=== PATIENT | female | born 1955 | race Caucasian/White ===

== ENCOUNTER 2021-06-13 13:42 | Inpatient (IN) ==
[2021-06-13] MEDS ORDERED: cefTRIAXone 1 GM VIAL IV ONE (14:13)
--- NOTE | 2021-06-13 14:18 | Emergency Department Note ---
Skin/Abscess/FB HPI General Chief complaint: Skin/Abscess/Rash Stated complaint: infected wound Time Seen by Provider: 06/13/21 14:00 Source: patient Mode of arrival: ambulatory Limitations: no limitations History of Present Illness HPI Narrative: Patient is a 66-year-old lady who arrives emergency department by private vehicle complaining of a right foot infection. The patient says yesterday she started notice a blister over the plantar surface of the right foot. She also is beginning to develop fever and chills. She has had generalized malaise and had an episode of diarrhea yesterday. Today when she woke up, she noticed that the blister was much larger and she had some purulent drainage from her foot as well. 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 Jurado who debrided the wound and recommended she come to the emergency department for IV antibiotics. Patient continues to have subjective fever and chills but otherwise denies any focal symptoms. Nothing seems to make the symptoms any better or worse. She has had similar problems in the past due to foot infections. Related Data Home Medications Medication Instructions Recorded Confirmed aspirin [Arline Chewable Aspirin] 81 mg PO DAILY 09/15/17 09/15/17 furosemide 40 mg PO DAILY 09/15/17 06/13/21 losartan [Cozaar] 25 mg PO DAILY 09/15/17 06/13/21 metformin [Fortamet] See Rx Instructions .ROUTE .COMPLEX 09/15/17 06/13/21 simvastatin 40 mg PO HS 09/15/17 09/15/17 B [place] PO 11/21/19 DHEA 5 mg PO 11/21/19 Gamma E 5mg PO 11/21/19 [place] ProDHA 1000 PO 11/21/19 [place] ProEPA 2000MG PO 11/21/19 Q-Evail 200 mg PO 11/21/19 11/21/19 Quercitin and Nettle 600mg PO 11/21/19 Tumeric 800mg PO 11/21/19 Zinc Plus 15mg PO 11/21/19 apple cider vinegar 300 mg tablet mg .ROUTE 11/21/19 11/21/19 ascorbate calcium (vitamin C) 500 mg .ROUTE 11/21/19 11/21/19 mg tablet cholecalciferol (vitamin D3) 125 mcg .ROUTE 11/21/19 11/21/19 mcg (5,000 unit) capsule cinnamon bark 500 mg capsule mg .ROUTE 11/21/19 11/21/19 cyclosporine 0.05 % eye drops in a % .ROUTE 11/21/19 11/21/19 dropperette fluconazole 100 mg tablet mg .ROUTE 11/21/19 11/21/19 fluticasone propionate 50 mcg .ROUTE 11/21/19 11/21/19 mcg/actuation nasal spray,suspension hydrochlorothiazide 25 mg tablet See Rx Instructions .ROUTE .COMPLEX 11/21/19 06/13/21 ibuprofen 100 mg tablet mg .ROUTE 11/21/19 11/21/19 liquid B12 500mg PO 11/21/19 magnesium gluconate 12.5 mg mg .ROUTE 11/21/19 magnesium (250 mg) tablet montelukast 10 mg tablet See Rx Instructions .ROUTE 11/21/19 11/21/19 .COMPLEX tab pregabalin 75 mg capsule mg .ROUTE .TID cap 11/21/19 11/21/19 pseudoephedrine-guaifenesin ER 120 tab .ROUTE 11/21/19 11/21/19 mg-1,200 mg tab,extend release 12hr acyclovir 1 applic TOPICAL 5XD PRN 06/13/21 06/13/21 clotrimazole-betamethasone 15 TOPICAL BID 06/13/21 hydroxychloroquine 200 mg PO WEEKLY 06/13/21 06/13/21 insulin glargine [Basaglar KwikPen See Rx Instructions .ROUTE .COMPLEX 06/13/21 06/13/21 U-100 Insulin] potassium 20 mg PO 06/13/21 potassium chloride [Klor-Con M20] 20 meq PO DAILY 06/13/21 06/13/21 Allergies Allergy/AdvReac Type Severity Reaction Status Date / Time codeine Allergy Intermediate Confusion Verified 09/15/17 07:57 ketoconazole Allergy Mild Rash Unverified 06/13/21 15:35 acetaminophen [From Percocet] Allergy Unknown Unknown Unverified 11/21/19 11:11 azithromycin Allergy Unknown Unknown Unverified 11/21/19 11:11 bupropion [From Wellbutrin] Allergy Unknown Unknown Unverified 11/21/19 11:11 hydrocodone [From Lortab] Allergy Unknown unknown Unverified 11/21/19 11:11 oxycodone [From Percocet] Allergy Unknown Unknown Unverified 11/21/19 11:11 pioglitazone [From Actos] Allergy Unknown Unknown Unverified 11/21/19 11:11 Synthetic Insulin Allergy Unknown Unknown Uncoded 11/21/19 11:05 Review of Systems ROS ROS Narrative: Narrative: All systems ED: reviewed and negative except as stated. Constitutional: Reports fever and chills Cardiovascular: Denies chest pain Gastrointestinal: Denies abdominal pain, nausea and vomiting PFSH Narrative Patient History Narrative: Narrative: Medical/Surgical/Family History All Active Problems (Updated 06/13/21 @ 17:09 by Wali Mclain DO) Cellulitis of foot, right (Acute) Diabetic ulcer of right foot (Acute) Asthma (Chronic) History of surgery (Chronic) Pericardial effusion (noninflammatory) (Chronic) Heart disease, unspecified (Chronic) Type 2 diabetes mellitus with diabetic neuropathy, unspecified (Chronic) Stenosis of larynx (Chronic) Morbid obesity (Chronic) Unspecified asthma, uncomplicated (Chronic) Hypertension (Chronic) Radiculopathy, lumbosacral region (Chronic) Low back pain (Chronic) Chronic pain (Chronic) Medical History Asthma Chronic pain Heart disease, unspecified Hypertension Low back pain Morbid obesity Pericardial effusion (noninflammatory) Radiculopathy, lumbosacral region Stenosis of larynx S/P Dilation Type 2 diabetes mellitus with diabetic neuropathy, unspecified Unspecified asthma, uncomplicated Surgical History History of surgery LESI #2 Lt. L5-S1 w/o sed 11/02/2019 LESI #1 Lt. L5-S1 w/o sed 10/12/2019 Family History Other No pertinent family history Social History Smoking Status: Never smoker Alcohol Intake Frequency: does not drink Substance Use: does not use Exam Narrative Narrative: I reviewed the vital signs. Gen -patient is awake and alert and in no acute distress. HEENT -head is atraumatic. There is no conjunctival pallor or scleral icterus. CV -S1-S2 regular rate and rhythm. Resp -breathing is nonlabored. Lungs are clear to auscultation bilaterally. There is no cyanosis. Derm -skin is warm and dry. MSK -there is a patch of desquamation over the posterior plantar surface of the right foot consistent with recent debridement. There is underlying granulation tissue present. There is surrounding erythema tracking up the medial surface of the foot that blanches with palpation. There is palpable warmth to the soft tissues of the calf without any visible erythema. There is no palpable fluctu ance or crepitus to the soft tissues. Dorsalis pedis and posterior tibial pulse are palpable. The patient's foot is insensate as she states is her long-term baseline Psych -patient has appropriate affect. Neuro -patient answers questions appropriately with fluent speech. Patient moves all present extremities equally. General Limitations: no limitations Course Vital Signs Vital signs: Vital Signs Temperature 97.8 F 06/13/21 13:44 Pulse Rate 83 06/13/21 13:44 Respiratory Rate 16 06/13/21 13:44 Blood Pressure 163/68 06/13/21 13:44 Pulse Oximetry (%) 96 06/13/21 13:44 Temperature 97.8 F 06/13/21 13:44 Pulse Rate 72 06/13/21 17:01 Respiratory Rate 16 06/13/21 13:44 Blood Pressure 132/47 06/13/21 17:01 Pulse Oximetry (%) 96 06/13/21 17:01 [facility] MDM Narrative Medical decision making narrative: Patient presents with cellulitis surrounding a recently diabetic foot ulcer. Labs remarkable for minimal leukocytosis. Given the surrounding cellulitis I recommended the patient be admitted for IV antibiotics and she is agreeable. I discussed the patient's history examination and diagnostic findings with Dr. Pickens, who agrees with the plan of care and accepts admission. Lab Data Lab results reviewed: Yes I reviewed the patient's lab results. Result diagrams: 06/13/21 13:23 Labs: Lab Results 06/13/21 06/13/21 06/13/21 Range/Units 13:23 14:23 14:33 WBC 12.1 H (4.5-11.0) K/mcL RBC 4.14 (3.59-5.38) M/mcL Hgb 13.0 (11.2-15.7) g/dL Hct 39.0 (34.1-44.9) % POC Hct 38 (36-48) % MCV 94.2 (80.0-100.0) fL MCH 31.4 (26.0-34.0) pg MCHC 33.3 (31.0-36.0) g/dL RDW 12.9 (11.5-14.5) % Plt Count 175 (140-440) K/mcL MPV 12.3 H (7.4-10.4) fL Neut % (Auto) 80.0 H (38.0-78.0) % Lymph % (Auto) 11.4 L (15.5-49.0) % [place] % (Auto) 7.7 (1.0-12.0) % Eos % (Auto) 0.6 (0.0-7.0) % Baso % (Auto) 0.3 (0.0-2.0) % Lymph # (Auto) 1.39 L (1.50-4.80) K/mcL [place] # (Auto) 0.94 H (0.10-0.90) K/mcL Eos # (Auto) 0.07 (0.00-0.70) K/mcL Baso # (Auto) 0.04 (0.00-0.30) K/mcL Absolute Neutrophils 9.70 H (1.80-8.00) K/mcL VBG Lactic Acid 1.1 (0.5-2.0) mmol/L POC Sodium 134 (133-145) mEq/L POC Potassium 4.1 (3.3-5.1) mEql/L POC Chloride 99 (96-108) mEq/L POC Total CO2 23 (22-30) mmol/L POC BUN 22 H (6-20) mg/dL POC Creatinine 0.6 (0.6-1.2) mg/dL POC Glucose 376 H (70-105) mg/dL POC WB Ioniz Calcium 1.06 L (1.16-1.32) mmEq/L ED POC Tests ED POC Tests: SHEILA - SARS Antigen Negative Discharge Plan Patient/Caregiver Discharge Instructions Pt seen by TIMBER RIDER/PA only: No Clinical Impression: Diabetic ulcer of right foot, Cellulitis of foot, right Patient Disposition: Xfer As Inpt ([facility]) Follow up with: Bipin Yung [Primary Care Provider] - Prescriptions: No Action losartan [Cozaar] 50 MG tablet 25 mg PO DAILY RF: 0 furosemide 40 MG tablet 40 mg PO DAILY RF: 0 simvastatin 40 MG tablet 40 mg PO HS RF: 0 aspirin [Arline Chewable Aspirin] 81 MG tablet,chewable 81 mg PO DAILY RF: 0 metformin [Fortamet] 1,000 MG tablet extended release 24hr See Rx Instructions .ROUTE .COMPLEX RF: 0 potassium chloride [Klor-Con M20] 20 mEq tablet,ER particles/crystals 20 meq PO DAILY RF: 0 clotrimazole-betamethasone 1-0.05 % Cream 15 TOPICAL BID RF: 0 hydroxychloroquine 200 mg Tablet 200 mg PO WEEKLY RF: 0 potassium 20 mg Tablet,Chewable 20 mg PO RF: 0 acyclovir 5 % Cream 1 applic TOPICAL 5XD PRN (Reason: Shingles) RF: 0 Basaglar KwikPen U-100 Insulin 100 unit/mL (3 mL) insulin pen See Rx Instructions .ROUTE .COMPLEX RF: 0 pregabalin [Lyrica] 75 mg capsule .Route .TID RF: 0 hydrochlorothiazide 25 mg tablet See Rx Instructions .ROUTE .COMPLEX RF: 0 montelukast [Singulair] 10 mg tablet See Rx Instructions .ROUTE .COMPLEX RF: 0 fluticasone propionate [Flonase Allergy Relief] 50 mcg/actuation spray,suspension .Route RF: 0 [place] 0.05 % dropperette .Route RF: 0 ibuprofen 100 mg tablet .Route RF: 0 magnesium gluconate 12.5 mg magnesium (250 mg) tablet 12.5 mg magne- sium (250 mg) tablet .Route RF: 0 pseudoephedrine-guaifenesin [Mucinex D Maximum Strength] 120-1,200 mg tablet extended release 12 hr .Route RF: 0 ascorbate calcium (vitamin C) 500 mg tablet .Route RF: 0 cinnamon bark [Cinnamon] 500 mg capsule .Route RF: 0 apple cider vinegar 300 mg tablet .Route RF: 0 Q-Evail 200 mg tablet PO RF: 0 Quercitin and Nettle 600mg tablet PO RF: 0 B [place] PO RF: 0 Tumeric 800mg PO RF: 0 Zinc Plus 15mg PO RF: 0 [place] ProDHA 1000 PO RF: 0 Gamma E 5mg PO RF: 0 cholecalciferol (vitamin D3) 125 mcg (5,000 unit) capsule .Route RF: 0 fluconazole 100 mg tablet .Route RF: 0 liquid B12 500mg PO RF: 0 [place] ProEPA 2000MG PO RF: 0 DHEA 5 mg PO RF: 0
[2021-06-13 14:44] LABS: POC Blood Urea Nitrogen 22 mg/dL (6-20); POC CO2 23 mmol/L (22-30); POC Calcium, Ionized 1.06 mmEq/L (1.16-1.32); POC Chloride 99 mEq/L (96-108); POC Creatinine 0.6 mg/dL (0.6-1.2); POC Glucose, Random 376 mg/dL (70-105); POC Hematocrit 38 % (36-48); POC Potassium 4.1 mEql/L (3.3-5.1); POC Sodium 134 mEq/L (133-145)
[2021-06-13 15:14] LABS: Basophils # (Auto) 0.04 K/mcL (0.00-0.30); Basophils % (Auto) 0.3 % (0.0-2.0); Eosinophils # (Auto) 0.07 K/mcL (0.00-0.70); Eosinophils % (Auto) 0.6 % (0.0-7.0); Lymphocytes # (Auto) 1.39 K/mcL (1.50-4.80); Lymphocytes % (Auto) 11.4 % (15.5-49.0); Mean Cell Volume 94.2 fL (80.0-100.0); Mean Corpuscular HGB Conc 33.3 g/dL (31.0-36.0); Mean Platelet Volume 12.3 fL (7.4-10.4); Monocytes # (Auto) 0.94 K/mcL (0.10-0.90); Monocytes % (Auto) 7.7 % (1.0-12.0); Platelet Count 175 K/mcL (140-440); RBC 4.14 M/mcL (3.59-5.38); Red Cell Distribution Width 12.9 % (11.5-14.5); WBC 12.1 K/mcL (4.5-11.0)
[2021-06-13] MEDS ORDERED: ACYCLOVIR 5% TOPICAL PRN (16:27)
[2021-06-13] MEDS ORDERED: HYDROXYCHLOROQUINE 200 MG TABLET PO SCH (16:30)
[2021-06-13] MEDS ORDERED: IPRATROPIUM/ALBUTEROL 3 ML AMPUL.NEB NEB PRN ×2 (16:48→18:11)
--- NOTE | 2021-06-13 16:48 | Internal Med History&Physical ---
HPI History of Present Illness Patient information: Note initiated : 06/13/21 at 4:45 pm Service Date, if different from initiated Date: [] Patient: Grace Sands 66 y/o F admitted on for infected wound. Chief Complaint: [right diabetic foot] History of present illness: Ms. Sands is a 66 year old F history of morbid obesity, type 2 diabetes mellitus, asthma, essential hypertension's, presenting with 2-day history of right foot ulcer at her also. Prior similar episode was about a month ago on her right fifth toe. She does not remember any trauma or injury to the site. 2 days ago she had a low-grade fever temperature 98 according to patient's. She also had diarrhea 3 days ago. Yesterday she woke up discovering a blister measuring 5 x 7 to 10 cm in the sole of her right foot. She denies any pain because she cannot feel any pain secondary to diabetic neuropathy. She currently does not have any subjective or objective fever or any shaking chills. No change in her appetite. She presented to her PCP clinics earlier today for a wound debridement but she was sent by the PCP to our ED for further evaluations. Vital signs are within normal limits upon ER presentations. Labs significant for leukocytosis with WBC 12.1. Serum glucose level 376. No imaging available. Constitutional Constitutional: Absent chills, excessive sweating, fatigue, fever(s) and weakness EENT Eyes: Absent blurry vision, change in vision, loss of vision and other visual disturbances Ears: Absent decreased hearing and tinnitus Nose, mouth and throat: Absent abnormal hearing, dry mouth, headache(s), nasal congestion and sore throat Cardiovascular Cardiovascular: Absent chest pain, chest pain at rest, edema, irregular heart rhythm and palpatations Respiratory Respiratory: Absent cough, dyspnea and wheezing Gastrointestinal Gastrointestinal: Absent abdominal pain, constipation, diarrhea, nausea and vomiting Musculoskeletal Musculoskeletal: Absent back pain, deformity, limited range of motion, muscle cramps, muscle weakness and numbness Additional comments: 5X10cm skin ulcer s/p debridement located on her right sole Integumentary Integumentary: Present lesions, skin ulcer and wounds; Absent rash Neurological Neurological: Absent focal weakness, headache(s) and numbness Psychiatric Psychiatric: Absent anxiety, depression and hallucinations PFSH PFSH All Active Problems (Updated 06/13/21 @ 16:53 by Marc Pickens MD) Diabetic ulcer of right foot (Acute) Asthma (Chronic) History of surgery (Chronic) Pericardial effusion (noninflammatory) (Chronic) Heart disease, unspecified (Chronic) Type 2 diabetes mellitus with diabetic neuropathy, unspecified (Chronic) Stenosis of larynx (Chronic) Morbid obesity (Chronic) Unspecified asthma, uncomplicated (Chronic) Hypertension (Chronic) Radiculopathy, lumbosacral region (Chronic) Low back pain (Chronic) Chronic pain (Chronic) Medical History Asthma Chronic pain Heart disease, unspecified Hypertension Low back pain Morbid obesity Pericardial effusion (noninflammatory) Radiculopathy, lumbosacral region Stenosis of larynx S/P Dilation Type 2 diabetes mellitus with diabetic neuropathy, unspecified Unspecified asthma, uncomplicated Surgical History History of surgery LESI #2 Lt. L5-S1 w/o sed 11/02/2019 LESI #1 Lt. L5-S1 w/o sed 10/12/2019 Family History Other No pertinent family history Social History alcohol intake frequency: does not drink substance use type: does not use MEDS/ALLERGIES Home Medications and Allergies Home Medications Medication Instructions Recorded Confirmed Type aspirin [Arline Chewable Aspirin] 81 mg PO DAILY 09/15/17 09/15/17 History furosemide 40 mg PO DAILY 09/15/17 06/13/21 History losartan [Cozaar] 25 mg PO DAILY 09/15/17 06/13/21 History metformin [Fortamet] See Rx Instructions .ROUTE .COMPLEX 09/15/17 06/13/21 History simvastatin 40 mg PO HS 09/15/17 09/15/17 History B [place] PO 11/21/19 History DHEA 5 mg PO 11/21/19 History Gamma E 5mg PO 11/21/19 History [place] ProDHA 1000 PO 11/21/19 History [place] ProEPA 2000MG PO 11/21/19 History Q-Evail 200 mg PO 11/21/19 11/21/19 History Quercitin and Nettle 600mg PO 11/21/19 History Tumeric 800mg PO 11/21/19 History Zinc Plus 15mg PO 11/21/19 History apple cider vinegar 300 mg tablet mg .ROUTE 11/21/19 11/21/19 History ascorbate calcium (vitamin C) 500 mg .ROUTE 11/21/19 11/21/19 History mg tablet cholecalciferol (vitamin D3) 125 mcg .ROUTE 11/21/19 11/21/19 History mcg (5,000 unit) capsule cinnamon bark 500 mg capsule mg .ROUTE 11/21/19 11/21/19 History cyclosporine 0.05 % eye drops in a % .ROUTE 11/21/19 11/21/19 History dropperette fluconazole 100 mg tablet mg .ROUTE 11/21/19 11/21/19 History fluticasone propionate 50 mcg .ROUTE 11/21/19 11/21/19 History mcg/actuation nasal spray,suspension hydrochlorothiazide 25 mg tablet See Rx Instructions .ROUTE .COMPLEX 11/21/19 06/13/21 History ibuprofen 100 mg tablet mg .ROUTE 11/21/19 11/21/19 History liquid B12 500mg PO 11/21/19 History magnesium gluconate 12.5 mg mg .ROUTE 11/21/19 History magnesium (250 mg) tablet montelukast 10 mg tablet See Rx Instructions .ROUTE 11/21/19 11/21/19 History .COMPLEX tab pregabalin 75 mg capsule mg .ROUTE .TID cap 11/21/19 11/21/19 History pseudoephedrine-guaifenesin ER 120 tab .ROUTE 11/21/19 11/21/19 History mg-1,200 mg tab,extend release 12hr acyclovir 1 applic TOPICAL 5XD PRN 06/13/21 06/13/21 History clotrimazole-betamethasone 15 TOPICAL BID 06/13/21 History hydroxychloroquine 200 mg PO WEEKLY 06/13/21 06/13/21 History insulin glargine [Basaglar KwikPen See Rx Instructions .ROUTE .COMPLEX 06/13/21 06/13/21 History U-100 Insulin] potassium 20 mg PO 06/13/21 History potassium chloride [Klor-Con M20] 20 meq PO DAILY 06/13/21 06/13/21 History Allergies Allergy/AdvReac Type Severity Reaction Status Date / Time codeine Allergy Intermediate Confusion Verified 09/15/17 07:57 ketoconazole Allergy Mild Rash Unverified 06/13/21 15:35 acetaminophen [From Percocet] Allergy Unknown Unknown Unverified 11/21/19 11:11 azithromycin Allergy Unknown Unknown Unverified 11/21/19 11:11 bupropion [From Wellbutrin] Allergy Unknown Unknown Unverified 11/21/19 11:11 hydrocodone [From Lortab] Allergy Unknown unknown Unverified 11/21/19 11:11 oxycodone [From Percocet] Allergy Unknown Unknown Unverified 11/21/19 11:11 pioglitazone [From Actos] Allergy Unknown Unknown Unverified 11/21/19 11:11 Synthetic Insulin Allergy Unknown Unknown Uncoded 11/21/19 11:05 EXAM Constitutional Vitals: Temp Pulse Resp BP Pulse Ox 36.6 C 74 16 133/44 94 06/13/21 13:44 06/13/21 16:31 06/13/21 13:44 06/13/21 16:31 06/13/21 16:31 General appearance: cooperative and no acute distress Head Head exam: Present atraumatic and normocephalic Eye Eye exam: Present EOMI and PERRL ENT ENT exam: Present mucous membranes moist, normal exam and normal external ear exam Neck Neck exam: Present normal inspection; Absent lymphadenopathy, tenderness and thyromegaly Respiratory Respiratory exam: Absent accessory muscle use, respiratory distress and wheezes Cardiovascular Cardiovascular exam: Present normal rate and rhythm; Absent JVD GI/Abdominal GI/Abdominal exam: Present normal bowel sounds and soft; Absent organomegaly and tenderness Extremities Exam Extremities exam: Present full ROM and normal capillary refill; Absent normal inspection and tenderness Additional comments: 5X10cm ulcer s/p debridement located on her right sole with surrounding erythema, warmth to touch Neurological Exam Neurological exam: Present alert, CN II-XII intact and oriented X3; Absent motor sensory deficit Psychiatric Psychiatric exam: Present normal affect and normal mood; Absent anxious and depressed Skin Skin exam: Present dry, erythema and warm; Absent intact Additional comments: 5X10cm ulcer s/p debridement located on her right sole with surrounding erythema, warmth to touch DATA Data Completed and Pending Labs: Labs from last 24 hours 06/13/21 06/13/21 06/13/21 14:33 14:23 13:23 WBC 12.1 H RBC 4.14 Hgb 13.0 Hct 39.0 POC Hct 38 MCV 94.2 MCH 31.4 MCHC 33.3 RDW 12.9 Plt Count 175 MPV 12.3 H Neut % (Auto) 80.0 H Lymph % (Auto) 11.4 L [place] % (Auto) 7.7 Eos % (Auto) 0.6 Baso % (Auto) 0.3 Lymph # (Auto) 1.39 L [place] # (Auto) 0.94 H Eos # (Auto) 0.07 Baso # (Auto) 0.04 Absolute Neutrophils 9.70 H VBG Lactic Acid 1.1 POC Sodium 134 POC Potassium 4.1 POC Chloride 99 POC Total CO2 23 POC BUN 22 H POC Creatinine 0.6 POC Glucose 376 H POC WB Ioniz Calcium 1.06 L A/P Assessment and plan (1) Type 2 diabetes mellitus with diabetic neuropathy, unspecified: Status: Chronic (2) Diabetic ulcer of right foot: Status: Acute (3) Morbid obesity: Status: Chronic (4) Hypertension: Status: Chronic (5) Asthma: Status: Chronic Narrative A/P Narrative: Assessment and Plans: 1. Diabetic foot ulcer of the right foot, with associated diabetic neuropathy: Admit to inpatient MedSurg Consult termite treater Dr. Garza, recommendation appreciated Blood culture Wound culture Serial lactic acid Procalcitonin level CBC with auto differential in the morning to trend WBC Right foot x-ray Vancomycin Zosyn Oxycodone as needed moderate pain Morphine IV as needed severe pain Tylenol as needed fever or mild pain Physical therapy Occupational Therapy Hemoglobin A1c Hold oral hypoglycemics Increased dosage of insulin Lantus to 10 units subcutaneous twice daily for better glycemic coverage High-dose correctional scale insulin AC at bedtime Accu-Chek AC at bedtime Hypoglycemia protocol Diabetic diet #2 essential hypertension: Currently normotensive Continue home regiment of oral antihypertensive 3. History of asthma: Continue Fluticasone DuoNeb nebulizer as needed wheezing #4 morbid obesity: Counseled patient on importance he of lifestyle modification including regular exercise and balanced diet in order to lose weight GI prophylaxis: Not currently indicated DVT products: Heparin CODE STATUS: Full code Prognosis: Stable Disposition: Inpatient MedSurg Time Spent With Patient Time: Total time spent is greater than 50% in coordination of care (as documented) at patient's floor/unit and/or counseling patient: Total time spent with greater than 50% in coordination of care (as documented) at patient's floor/unit and/or counseling patient:: Greater than 35 minutes
[2021-06-13] MEDS ORDERED: DEXTROSE 50% 50 ML VIAL IV PRN (18:11)
[2021-06-13] MEDS ORDERED: DEXTROSE 31 GM ORAL.SUSP PO PRN (18:11)
[2021-06-13] MEDS ORDERED: ACETAMINOPHEN 325 MG TABLET PO PRN (18:11)
[2021-06-13] MEDS ORDERED: ZOLPIDEM 5 MG TABLET PO PRN (18:11)
[2021-06-13] MEDS ORDERED: oxyCODONE HCL 5 MG TABLET PO PRN (18:11)
[2021-06-13] MEDS ORDERED: ONDANSETRON 4 MG/2 ML VIAL IV PRN (18:11)
[2021-06-13] MEDS ORDERED: morphine 4 MG/ML VIAL IV PRN (18:11)
[2021-06-13] MEDS ORDERED: VANCOMYCIN PER PHARMACY IV SCH (18:11)
--- NOTE | 2021-06-13 18:35 | XRay Report ---
HISTORY: Diabetic wound in the right foot with infection FINDINGS: There is a skin dressing applied to the plantar surface of the foot under the heel. There is no gas or other foreign body in this region. The bones are normally mineralized without evidence of osteomyelitis. There is mild osteoarthritis. Medium-size spur is present on the plantar surface of the calcaneus with a smaller spur posteriorly. There is also mild arthritis along the dorsal side of the cuneiforms and the first metatarsal phalangeal joint. Few vascular calcifications are present in the foot. IMPRESSION: No evidence of osteomyelitis. Mild arthritis Interpreted and Authenticated by: Chaz Rojas 06/13/21
[2021-06-13] MEDS: PIPERACILLIN SODIUM/TAZOBACTAM 3.375 GM in DEXTROSE 5% IN WATER 50 ML IV SCH ×2 (20:09→23:12)
[2021-06-13] MEDS ORDERED: ACYCLOVIR TP PRN (20:13)
[2021-06-13] MEDS ORDERED: IBUPROFEN 200 MG TABLET PO PRN (20:43)
[2021-06-13] MEDS: INSULIN LISPRO 1 UNIT/0.01 ML UNIT SQ SCH ×2 (20:53→23:10)
[2021-06-13] MEDS: DOCUSATE SODIUM 100 MG CAPSULE PO SCH (20:54)
[2021-06-13] MEDS: HEPARIN 5,000 UNIT/ML VIAL SQ SCH (20:54)
[2021-06-13] MEDS: FLUTICASONE PROPIONATE SPRAY.NAS NS SCH (20:54)
[2021-06-13] MEDS: INSULIN GLARGINE, HUMAN 1 UNIT/0.01 ML SQ SCH (20:54)
[2021-06-13] MEDS: SIMVASTATIN 40 MG TABLET PO SCH (20:56)
[2021-06-13] MEDS: SENNOSIDES 1 TABLET PO SCH (20:56)
[2021-06-13] MEDS: MONTELUKAST 10 MG TABLET PO SCH (20:56)
[2021-06-13] MEDS: 0.9 % SODIUM CHLORIDE 10 ML SYRINGE IV SCH (20:56)
[2021-06-13] MEDS ORDERED: guaiFENesin 600 MG TAB.SR.12H PO SCH (21:00)
[2021-06-13] MEDS ORDERED: PSEUDOEPHEDRINE 30 MG TABLET PO SCH (21:00)
[2021-06-13] MEDS ORDERED: guaiFENesin 600 MG TAB.SR.12H PO PRN (21:00)
[2021-06-13] MEDS ORDERED: NON FORMULARY MEDICATION 1 DOSE MISCELL (Insulin Glargine [Basaglar Kwikpen U-100 Insulin] SQ SCH (21:00)
[2021-06-13] MEDS ORDERED: PSEUDOEPHEDRINE 30 MG TABLET PO PRN (21:00)
[2021-06-13] MEDS: PREGABALIN 75 MG CAPSULE PO SCH (21:03)
[2021-06-13] MEDS: VANCOMYCIN 1,500 MG in 0.9 % SODIUM CHLORIDE 500 ML IV SCH (21:53)
[2021-06-13 23:41] LABS: Hemoglobin A1C 8.9 % Hgb (4.0-6.0)
[2021-06-14] MEDS: PIPERACILLIN SODIUM/TAZOBACTAM 3.375 GM in DEXTROSE 5% IN WATER 50 ML IV SCH ×4 (03:19→18:19)
[2021-06-14] MEDS: 0.9 % SODIUM CHLORIDE 10 ML SYRINGE IV SCH ×3 (04:43→20:13)
[2021-06-14 07:05] LABS: Basophils # (Auto) 0.04 K/mcL (0.00-0.30); Basophils % (Auto) 0.4 % (0.0-2.0); Eosinophils # (Auto) 0.16 K/mcL (0.00-0.70); Eosinophils % (Auto) 1.5 % (0.0-7.0); Hematocrit 34.8 % (34.1-44.9); Hemoglobin 11.2 g/dL (11.2-15.7); Lymphocytes # (Auto) 2.32 K/mcL (1.50-4.80); Lymphocytes % (Auto) 21.1 % (15.5-49.0); Mean Cell Volume 95.9 fL (80.0-100.0); Mean Corpuscular HGB Conc 32.2 g/dL (31.0-36.0); Mean Platelet Volume 11.9 fL (7.4-10.4); Monocytes # (Auto) 1.19 K/mcL (0.10-0.90); Monocytes % (Auto) 10.8 % (1.0-12.0); Neutrophils % (Auto) 66.2 % (38.0-78.0); Platelet Count 171 K/mcL (140-440); RBC 3.63 M/mcL (3.59-5.38)
[2021-06-14 07:37] LABS: ALT/SGPT 25 U/L (<40); AST/SGOT 23 U/L (<32); Albumin 3.3 gm/dL (3.2-5.2); Albumin/Globulin Ratio 1.2 (1.0-2.3); Alkaline Phosphatase 73 U/L (39-117); Bilirubin,Total 0.4 mg/dL (0.1-1.0); Blood Urea Nitrogen 23 mg/dL (8-23); Calcium 8.9 mg/dL (8.6-10.4); Carbon Dioxide 22 mmol/L (22-30); Chloride 100 mmol/L (96-108); Globulin 2.7 gm/dL (2.2-3.7); Glomerular Filtration Rate 77; Glucose 290 mg/dL (70-105)
[2021-06-14] MEDS: INSULIN LISPRO 1 UNIT/0.01 ML UNIT SQ SCH ×4 (08:13→20:12)
[2021-06-14] MEDS: VANCOMYCIN 1,500 MG in 0.9 % SODIUM CHLORIDE 500 ML IV SCH ×2 (08:15→19:54)
[2021-06-14] MEDS: LOSARTAN 25 MG TABLET PO SCH (08:15)
[2021-06-14] MEDS: VITAMIN D3 5,000 UNIT TABLET PO SCH (08:15)
[2021-06-14] MEDS: ASCORBIC ACID 500 MG TABLET PO SCH (08:15)
[2021-06-14] MEDS: POTASSIUM CHLORIDE 20 MEQ TABLET PO SCH (08:50)
[2021-06-14] MEDS: ASPIRIN 81 MG TAB.CHEW PO SCH (08:51)
[2021-06-14] MEDS: DOCUSATE SODIUM 100 MG CAPSULE PO SCH ×2 (08:51→20:11)
[2021-06-14] MEDS: INSULIN GLARGINE, HUMAN 1 UNIT/0.01 ML SQ SCH ×3 (08:52→20:12)
[2021-06-14] MEDS: FLUTICASONE PROPIONATE SPRAY.NAS NS SCH ×2 (08:52→20:11)
[2021-06-14] MEDS: FUROSEMIDE 40 MG TABLET PO SCH (08:53)
[2021-06-14] MEDS: PREGABALIN 75 MG CAPSULE PO SCH ×3 (08:54→20:05)
[2021-06-14] MEDS: FLUCONAZOLE 100 MG TABLET PO SCH (08:55)
[2021-06-14] MEDS ORDERED: LOSARTAN 50 MG TABLET PO SCH (09:00)
[2021-06-14] MEDS ORDERED: APPLE CIDER VINEGAR 300 MG SCH (09:00)
[2021-06-14] MEDS ORDERED: [UNRECOGNIZED DRUG - OTHER] PO SCH (09:00)
[2021-06-14] MEDS ORDERED: NON FORMULARY MEDICATION 1 DOSE MISCELL (Cinnamon Bark [Cinnamon] 500 MG) SCH (09:00)
[2021-06-14] MEDS ORDERED: B12 PO SCH (09:00)
[2021-06-14] MEDS ORDERED: FUROSEMIDE 40 MG TABLET PO SCH (09:00)
[2021-06-14] MEDS ORDERED: POTASSIUM CHLORIDE 20 MEQ TABLET PO SCH (09:00)
[2021-06-14] MEDS ORDERED: TUMERIC PO SCH (09:00)
[2021-06-14] MEDS ORDERED: [UNRECOGNIZED DRUG - OTHER] PO SCH (09:00)
[2021-06-14] MEDS ORDERED: ZINC PLUS PO SCH (09:00)
[2021-06-14] MEDS ORDERED: [UNRECOGNIZED DRUG - OTHER] PO SCH (09:00)
[2021-06-14] MEDS ORDERED: DHEA PO SCH (09:00)
[2021-06-14] MEDS: HEPARIN 5,000 UNIT/ML VIAL SQ SCH ×2 (09:08→20:11)
--- NOTE | 2021-06-14 09:12 | Internal Med Progress Note ---
SUBJECTIVE Subjective Patient information: Note initiated : 06/14/21 at 9:10 am Service Date, if different from initiated Date: [] Patient: Grace Sands 66 y/o F admitted on 06/13/21 for infected wound. Chief Complaint: [right diabetic foot] Interval history: History of present illness: Ms. Sands is a 66 year old F history of morbid obesity, type 2 diabetes mellitus, asthma, essential hypertension's, presenting with 2-day history of right foot ulcer at her also. Prior similar episode was about a month ago on her right fifth toe. She does not remember any trauma or injury to the site. 2 days ago she had a low-grade fever temperature 98 according to patient's. She also had diarrhea 3 days ago. Yesterday she woke up discovering a blister measuring 5 x 7 to 10 cm in the sole of her right foot. She denies any pain because she cannot feel any pain secondary to diabetic neuropathy. She currently does not have any subjective or objective fever or any shaking chills. No change in her appetite. She presented to her PCP clinics earlier today for a wound debridement but she was sent by the PCP to our ED for further evaluations. Vital signs are within normal limits upon ER presentations. Labs significant for leukocytosis with WBC 12.1. Serum glucose level 376. No imaging available. 06/14: Afebrile overnight. Right foot X ray no signs of osteomyelitis. Blood and wound cultures no growth to date. Denies any fever or chills. Denies any foot pain currently. Constitutional Vitals: Vital Signs Temp Pulse Resp BP Pulse Ox 36.2 C 68 16 107/56 99 06/14/21 07:16 06/14/21 03:21 06/14/21 07:16 06/14/21 07:16 06/14/21 07:16 Period Temp Pulse Resp BP Sys/Torres Pulse Ox Last 24 Hr 36.2 C-36.9 C 68-83 14-20 107-163/42-68 93-99 Intake and Output 06/13/21 06/14/21 06/14/21 21:59 05:59 13:59 Intake Total 850 550 Balance 850 550 Weight 114.305 kg Intake & Output: Intake & Output 06/13/21 06/14/21 06/14/21 21:59 05:59 13:59 Intake Total 850 550 Balance 850 550 Weight 114.305 kg Intake: IV 50 550 Zosyn 3.375 gm In Dextrose 5% 50 50 in Water 50 ml @ 100 mls/hr IV Q6H [facility] Rx#:[id number] Vancomycin 1,500 mg In Sodium 500 Chloride 0.9% 500 ml @ 333.3 mls/hr IV Q12H [facility] Rx#: [id number] Oral 800 Other: Meal Nourishment/Supplement Percent of Meal Consumed 100% Feeding Ability Independent Nourishment/Supplement name eggsalad, tuna Stool Size Moderate Stool Color Brown Yellow Stool Consistency Loose # Voids 3 # Bowel Movements 2 General appearance: cooperative and no acute distress Head Head exam: Present atraumatic and normocephalic Eye Eye exam: Present EOMI and PERRL ENT ENT exam: Present mucous membranes moist, normal exam and normal external ear exam Neck Neck exam: Present normal inspection; Absent lymphadenopathy, tenderness and thyromegaly Respiratory Respiratory exam: Absent accessory muscle use, respiratory distress and wheezes Cardiovascular Cardiovascular exam: Present normal rate and rhythm; Absent JVD GI/Abdominal GI/Abdominal exam: Present normal bowel sounds and soft; Absent organomegaly and tenderness Extremities Exam Extremities exam: Present full ROM and normal capillary refill; Absent normal inspection and tenderness Additional comments: 5X10cm ulcer s/p debridement located on her right sole with surrounding erythema, warmth to touch Neurological Exam Neurological exam: Present alert, CN II-XII intact and oriented X3; Absent motor sensory deficit Psychiatric Psychiatric exam: Present normal affect and normal mood; Absent anxious and depressed Skin Skin exam: Present dry, erythema and warm; Absent intact Additional comments: 5X10cm ulcer s/p debridement located on her right sole with surrounding erythema, warmth to touch OBJ DATA Labs CBC & Chem 7: 06/14/21 05:45 06/14/21 05:45 Labs: Abnormal Lab Results 06/14/21 06/14/21 06/13/21 05:45 05:45 16:23 WBC MPV 11.9 H Neut % (Auto) Lymph % (Auto) Lymph # (Auto) Oliver # (Auto) 1.19 H Absolute Neutrophils Sodium 132 L POC BUN Glucose 290 H POC Glucose Hemoglobin A1c 8.9 H POC WB Ioniz Calcium Procalcitonin 06/13/21 06/13/21 06/13/21 14:33 14:23 13:23 WBC 12.1 H MPV 12.3 H Neut % (Auto) 80.0 H Lymph % (Auto) 11.4 L Lymph # (Auto) 1.39 L Oliver # (Auto) 0.94 H Absolute Neutrophils 9.70 H Sodium POC BUN 22 H Glucose POC Glucose 376 H Hemoglobin A1c POC WB Ioniz Calcium 1.06 L Procalcitonin 0.70 H Meds: Medications Acetaminophen (Acetaminophen 325 Mg Tablet) 650 mg PO Q6HP PRN; Protocol PRN Reason: Per Pain Protocol/Fever > 101 Acyclovir (Acyclovir 15 Gm Topoint) 1 gm TP 5XD PRN PRN Reason: Shingles Albuterol/Ipratropium (Ipratropium/Albuterol 3 Ml Ampul.Neb) 3 ml NEB Q4HP PRN PRN Reason: Shortness Of Breath Ascorbic Acid (Ascorbic Acid 500 Mg Tablet) 500 mg PO DAILY [facility] Last Admin: 06/14/21 08:15 Dose: 500 mg Documented by: Aspirin (Aspirin 81 Mg Tab.Chew) 81 mg PO DAILY [facility] Last Admin: 06/14/21 08:51 Dose: Not Given Documented by: Dextrose (Dextrose 50% 50 Ml Vial) 0 ml IV UD PRN PRN Reason: Hypoglycemia Diagnostic Test (Pha) (Accu-Chek 1 Each Strip) 1 each FS ACHS [facility] Last Admin: 06/14/21 08:11 Dose: 1 each Documented by: Docusate Sodium (Docusate Sodium 100 Mg Capsule) 100 mg PO BID [facility] Last Admin: 06/14/21 08:51 Dose: Not Given Documented by: Fluconazole (Fluconazole 100 Mg Tablet) 10 mg PO DAILY [facility]; Protocol Last Admin: 06/14/21 08:55 Dose: Not Given Documented by: Fluticasone Propionate (Fluticasone Propionate [place]ehuda) 1 spray NS BID [facility] Last Admin: 06/14/21 08:52 Dose: Not Given Documented by: Furosemide (Furosemide 40 Mg Tablet) 40 mg PO DAILY [facility] Last Admin: 06/14/21 08:53 Dose: 40 mg Documented by: Glucose (Dextrose 31 Gm Oral.Susp) 15 gm PO PRN PRN PRN Reason: Hypoglycemia Guaifenesin (Guaifenesin 600 Mg Tab.Sr.12h) 600 mg PO BIDP PRN PRN Reason: Congestion Heparin Sodium (Porcine) (Heparin 5,000 Unit/Ml Vial) 5,000 unit SQ Q12 [facility] Last Admin: 06/13/21 20:54 Dose: Not Given Documented by: Hydroxychloroquine Sulfate (Hydroxychloroquine 200 Mg Tablet) 200 mg PO WEEKLY [facility] Piperacillin Sod/Tazobactam (Sod 3.375 gm/ Dextrose) 50 mls @ 100 mls/hr IV Q6H [facility]; Protocol Last Infusion: 06/14/21 03:49 Dose: Infused Documented by: Vancomycin HCl 1,500 mg/ (Sodium Chloride) 500 mls @ 333.3 mls/hr IV Q12H [facility] Last Admin: 06/14/21 08:15 Dose: 333 mls/hr Documented by: Ibuprofen (Ibuprofen 200 Mg Tablet) 200 mg PO TIDP PRN PRN Reason: Pain Insulin Glargine (Insulin Glargine, Human 1 Unit/0.01 Ml) 10 unit SQ BID [facility] Last Admin: 06/14/21 08:52 Dose: 8 unit Documented by: Insulin Human Lispro (Insulin Lispro 1 Unit/0.01 Ml Unit) 0 unit SQ ACHS [facility]; Protocol Last Admin: 06/14/21 08:13 Dose: Not Given Documented by: Losartan Potassium (Losartan 25 Mg Tablet) 25 mg PO DAILY [facility] Last Admin: 06/14/21 08:15 Dose: 25 mg Documented by: Montelukast Sodium (Montelukast 10 Mg Tablet) 10 mg PO HS [facility] Last Admin: 06/13/21 20:56 Dose: Not Given Documented by: Morphine Sulfate (Morphine 4 Mg/Ml Vial) 4 mg IV Q4HP PRN; Protocol PRN Reason: Per Pain Protocol Non-Formulary Medication (Liquid B12 500mg ) 500 mg PO DAILY [facility] Non-Formulary Medication (Zinc Plus 15mg) 15 mg PO DAILY [facility] Last Admin: 06/14/21 08:15 Dose: 15 mg Documented by: Ondansetron HCl (Ondansetron 4 Mg/2 Ml Vial) 4 mg IV Q6HP PRN PRN Reason: Nausea And Vomiting Oxycodone HCl (Oxycodone Hcl 5 Mg Tablet) 5 mg PO Q4HP PRN; Protocol PRN Reason: Per Pain Protocol Potassium Chloride (Potassium Chloride 20 Meq Tablet) [facility] Admin: 06/14/21 08:50 Dose: 20 meq Documented by: Pregabalin (Pregabalin 75 Mg Capsule) 75 mg PO TID [facility] Last Admin: 06/14/21 08:54 Dose: Not Given Documented by: Pseudoephedrine HCl (Pseudoephedrine 30 Mg Tablet) 30 mg PO BIDP PRN PRN Reason: Congestion Senna (Sennosides 1 Tablet) 2 tab PO [facility] Last Admin: 06/13/21 20:56 Dose: Not Given Documented by: Simvastatin (Simvastatin 40 Mg Tablet) 40 mg PO [facility] Last Admin: 06/13/21 20:56 Dose: Not Given Documented by: Sodium Chloride (0.9 % Sodium Chloride 10 Ml Syringe) 10 ml IV Q8 [facility] Last Admin: 06/14/21 04:43 Dose: 10 ml Documented by: Vancomycin HCl (Vancomycin Per Pharmacy) 1 order IV UD [facility]; Protocol Vitamin D (Vitamin D3 5,000 Unit Capsule) 5,000 unit PO DAILY [facility] Last Admin: 06/14/21 08:15 Dose: 5,000 unit Documented by: Zolpidem Tartrate (Zolpidem 5 Mg Tablet) 5 mg PO HSP PRN PRN Reason: Insomnia A/P Assessment and plan (1) Type 2 diabetes mellitus with diabetic neuropathy, unspecified: Status: Chronic (2) Diabetic ulcer of right foot: Status: Acute (3) Morbid obesity: Status: Chronic (4) Hypertension: Status: Chronic (5) Asthma: Status: Chronic Narrative A/P Narrative: Assessment and Plans: 1. Diabetic foot ulcer of the right foot, with associated diabetic neuropathy: Stays in inpatient [facility] Consult [employer] Dr. Garza, recommendation appreciated Blood culture, no growth to date Wound culture, no growth to date Serial lactic acid Procalcitonin level CBC with auto differential in the morning to trend WBC Right foot x-ray, no sgins of osteomyelitis Vancomycin Zosyn Oxycodone as needed moderate pain Morphine IV as needed severe pain Tylenol as needed fever or mild pain Physical therapy Occupational Therapy Hemoglobin A1c 8.9 Hold oral hypoglycemics Increased dosage of insulin Lantus to 10 units subcutaneous twice daily for better glycemic coverage High-dose correctional scale insulin AC at bedtime Accu-Chek AC at bedtime Hypoglycemia protocol Diabetic diet #2 essential hypertension: Currently normotensive Continue home regiment of oral antihypertensive 3. History of asthma: Continue Fluticasone DuoNeb nebulizer as needed wheezing #4 morbid obesity: Counseled patient on importance he of lifestyle modification including regular exercise and balanced diet in order to lose weight GI prophylaxis: Not currently indicated DVT products: Heparin CODE STATUS: Full code Prognosis: Stable Disposition: Inpatient MedSurg Time Spent With Patient Time: Total time spent is greater than 50% in coordination of care (as documented) at patient's floor/unit and/or counseling patient: QUALITY VTE Deep Vein Thrombosis/Pulmonary Embolism Present on Admission: No
--- NOTE | 2021-06-14 12:21 | Orthopedic Consult Note ---
HPI Data of Consult Consult date: 06/14/21 Primary Care Provider: Bipin Yung Consult Narrative cc:: CC: Marc Pickens MD Patient was recently seen for diabetic foot ulceration/abscess on her right bottom of her foot measuring approximately 5 cm in diameter. This was debrided and irrigated by Dr. Shiva Jurado at [facility]. She was [facility] emergency department yesterday and was admitted for antibiotic therapy and management of cellulitis of the right lower extremity. No abscess remains or requires immediate irrigation at this time according to Dr. Jurado. PFSH PFSH All Active Problems (Updated 06/13/21 @ 17:09 by Wali Mclain DO) Cellulitis of foot, right (Acute) Diabetic ulcer of right foot (Acute) Asthma (Chronic) History of surgery (Chronic) Pericardial effusion (noninflammatory) (Chronic) Heart disease, unspecified (Chronic) Type 2 diabetes mellitus with diabetic neuropathy, unspecified (Chronic) Stenosis of larynx (Chronic) Morbid obesity (Chronic) Unspecified asthma, uncomplicated (Chronic) Hypertension (Chronic) Radiculopathy, lumbosacral region (Chronic) Low back pain (Chronic) Chronic pain (Chronic) Medical History Asthma Chronic pain Heart disease, unspecified Hypertension Low back pain Morbid obesity Pericardial effusion (noninflammatory) Radiculopathy, lumbosacral region Stenosis of larynx S/P Dilation Type 2 diabetes mellitus with diabetic neuropathy, unspecified Unspecified asthma, uncomplicated Surgical History History of surgery LESI #2 Lt. L5-S1 w/o sed 11/02/2019 LESI #1 Lt. L5-S1 w/o sed 10/12/2019 Family History Other No pertinent family history Social History alcohol intake frequency: does not drink substance use type: does not use MEDS/ALLERGIES Home Medications and Allergies Home Medications Medication Instructions Recorded Confirmed Type furosemide 40 mg PO DAILY 09/15/17 06/13/21 History losartan [Cozaar] 25 mg PO DAILY 09/15/17 06/13/21 History metformin [Fortamet] See Rx Instructions .ROUTE .COMPLEX 09/15/17 06/13/21 History simvastatin 40 mg PO HS 09/15/17 09/15/17 History B [place] 1 tab PO DAILY 11/21/19 History DHEA 5 mg PO 11/21/19 History Gamma E 5mg PO 11/21/19 History Tower ProDHA 1000 PO 11/21/19 History Tower ProEPA 2000MG PO 11/21/19 History Q-Evail 200 mg PO 11/21/19 11/21/19 History Quercitin and [place]ettle 600mg PO 11/21/19 History Tumeric 800mg PO 11/21/19 History Zinc Plus 15mg PO 11/21/19 History ascorbate calcium (vitamin C) 500 mg .ROUTE 11/21/19 11/21/19 History mg tablet cholecalciferol (vitamin D3) 125 mcg .ROUTE 11/21/19 11/21/19 History mcg (5,000 unit) capsule cinnamon bark 500 mg capsule mg .ROUTE 11/21/19 11/21/19 History cyclosporine 0.05 % eye drops in a % .ROUTE 11/21/19 11/21/19 History dropperette fluconazole 100 mg tablet mg .ROUTE 11/21/19 11/21/19 History fluticasone propionate 50 mcg .ROUTE 11/21/19 11/21/19 History mcg/actuation nasal spray,suspension hydrochlorothiazide 25 mg tablet See Rx Instructions .ROUTE .COMPLEX 11/21/19 06/13/21 History ibuprofen 100 mg tablet mg .ROUTE 11/21/19 11/21/19 History liquid B12 500mg PO 11/21/19 History magnesium gluconate 12.5 mg mg .ROUTE 11/21/19 History magnesium (250 mg) tablet montelukast 10 mg tablet See Rx Instructions .ROUTE 11/21/19 11/21/19 History .COMPLEX tab pregabalin 75 mg capsule mg .ROUTE .TID cap 11/21/19 11/21/19 History pseudoephedrine-guaifenesin ER 120 tab .ROUTE 11/21/19 11/21/19 History mg-1,200 mg tab,extend release 12hr acyclovir 1 applic TOPICAL 5XD PRN 06/13/21 06/14/21 History clotrimazole-betamethasone 15 TOPICAL BID 06/13/21 History hydroxychloroquine 200 mg PO WEEKLY 06/13/21 06/13/21 History insulin glargine [Basaglar KwikPen See Rx Instructions .ROUTE .COMPLEX 06/13/21 06/13/21 History U-100 Insulin] potassium 20 mg PO 06/13/21 History potassium chloride [Klor-Con M20] 20 meq PO DAILY 06/13/21 06/13/21 History Allergies Allergy/AdvReac Type Severity Reaction Status Date / Time codeine Allergy Intermediate Confusion Verified 06/13/21 19:07 ketoconazole Allergy Mild Rash Verified 06/13/21 19:07 azithromycin Allergy Unknown Rash Verified 06/14/21 10:09 bupropion [From Wellbutrin] Allergy Unknown Unknown Verified 06/14/21 10:09 hydrocodone [From Lortab] Allergy Unknown Nausea Verified 06/14/21 10:09 oxycodone [From Percocet] Allergy Unknown Nausea Verified 06/14/21 10:09 pioglitazone [From Actos] Allergy Unknown Swelling Verified 06/14/21 10:09 Physical Examination Narrative Narrative: Narrative: Ankle & Foot right: Ankle appearance: swelling, erythema and other (Loss of superficial skin to the plantar aspect of the right foot.) A/P Time Spent With Patient Time: Total time spent is greater than 50% in coordination of care (as documented) at patient's floor/unit and/or counseling patient: Patient is remain nonweightbearing to the right lower extremity Daily dressing changes Xeroform for progress Kerlix [place] wrap Patient received antibiotic therapy until cellulitis resolves Possible MRI should patient fail to respond to antibiotic therapy with possible incision and drainage should she fail 72 hours of antibiotic therapy.
[2021-06-14] MEDS: MONTELUKAST 10 MG TABLET PO SCH (20:12)
[2021-06-14] MEDS: SIMVASTATIN 40 MG TABLET PO SCH (20:12)
[2021-06-14] MEDS: SENNOSIDES 1 TABLET PO SCH (20:12)
[2021-06-15] MEDS: PIPERACILLIN SODIUM/TAZOBACTAM 3.375 GM in DEXTROSE 5% IN WATER 50 ML IV SCH ×4 (00:22→17:47)
[2021-06-15] MEDS: 0.9 % SODIUM CHLORIDE 10 ML SYRINGE IV SCH ×3 (05:35→20:14)
[2021-06-15 06:38] LABS: Basophils # (Auto) 0.06 K/mcL (0.00-0.30); Basophils % (Auto) 0.8 % (0.0-2.0); Eosinophils % (Auto) 4.1 % (0.0-7.0); Hematocrit 35.1 % (34.1-44.9); Hemoglobin 11.1 g/dL (11.2-15.7); Lymphocytes # (Auto) 2.63 K/mcL (1.50-4.80); Lymphocytes % (Auto) 36.3 % (15.5-49.0); Mean Cell Volume 95.4 fL (80.0-100.0); Mean Corpuscular HGB Conc 31.6 g/dL (31.0-36.0); Mean Platelet Volume 11.8 fL (7.4-10.4); Monocytes # (Auto) 0.86 K/mcL (0.10-0.90); Monocytes % (Auto) 11.9 % (1.0-12.0); Neutrophils % (Auto) 46.9 % (38.0-78.0); Platelet Count 174 K/mcL (140-440); RBC 3.68 M/mcL (3.59-5.38); Red Cell Distribution Width 13.1 % (11.5-14.5); WBC 7.3 K/mcL (4.5-11.0)
[2021-06-15 07:00] LABS: ALT/SGPT 26 U/L (<40); AST/SGOT 17 U/L (<32); Albumin 3.2 gm/dL (3.2-5.2); Albumin/Globulin Ratio 1.1 (1.0-2.3); Alkaline Phosphatase 78 U/L (39-117); Bilirubin,Direct < 0.2 mg/dL (0-0.3); Bilirubin,Total 0.2 mg/dL (0.1-1.0); Blood Urea Nitrogen 23 mg/dL (8-23); Calcium 8.8 mg/dL (8.6-10.4); Carbon Dioxide 23 mmol/L (22-30); Chloride 102 mmol/L (96-108); Globulin 2.8 gm/dL (2.2-3.7); Glomerular Filtration Rate 91; Glucose 204 mg/dL (70-105); Lactate Dehydrogenase 146 U/L (135-225); Phosphorous 3.7 mg/dL (2.5-4.5); Triglycerides 177 mg/dL (<150); Uric Acid 4.7 mg/dL (2.5-8.0)
[2021-06-15] MEDS: INSULIN LISPRO 1 UNIT/0.01 ML UNIT SQ SCH ×4 (07:48→20:13)
[2021-06-15] MEDS: DOCUSATE SODIUM 100 MG CAPSULE PO SCH ×2 (09:14→20:13)
[2021-06-15] MEDS: PREGABALIN 75 MG CAPSULE PO SCH ×3 (09:14→20:13)
[2021-06-15] MEDS: VITAMIN D3 5,000 UNIT TABLET PO SCH (09:15)
[2021-06-15] MEDS: LOSARTAN 25 MG TABLET PO SCH (09:15)
[2021-06-15] MEDS: ASPIRIN 81 MG TAB.CHEW PO SCH (09:15)
[2021-06-15] MEDS: ASCORBIC ACID 500 MG TABLET PO SCH (09:15)
[2021-06-15] MEDS: POTASSIUM CHLORIDE 20 MEQ TABLET PO SCH (09:15)
[2021-06-15] MEDS: FUROSEMIDE 40 MG TABLET PO SCH (09:15)
[2021-06-15] MEDS: HEPARIN 5,000 UNIT/ML VIAL SQ SCH ×2 (09:16→20:13)
[2021-06-15] MEDS: FLUCONAZOLE 100 MG TABLET PO SCH (09:17)
[2021-06-15] MEDS: FLUTICASONE PROPIONATE SPRAY.NAS NS SCH ×2 (09:17→20:13)
[2021-06-15] MEDS: INSULIN GLARGINE, HUMAN 1 UNIT/0.01 ML SQ SCH ×2 (09:18→20:17)
[2021-06-15] MEDS: VANCOMYCIN 1,500 MG in 0.9 % SODIUM CHLORIDE 500 ML IV SCH ×2 (11:35→20:14)
[2021-06-15] MEDS: MONTELUKAST 10 MG TABLET PO SCH (20:14)
[2021-06-15] MEDS: SIMVASTATIN 40 MG TABLET PO SCH (20:14)
[2021-06-15] MEDS: SENNOSIDES 1 TABLET PO SCH (20:14)
--- NOTE | 2021-06-15 21:25 | Internal Med Progress Note ---
SUBJECTIVE Subjective Patient information: Note initiated : 06/15/21 at 7:06 pm Service Date, if different from initiated Date: [] Patient: Grace Sands 66 y/o F admitted on 06/13/21 for infected wound. Chief Complaint: Follow-up diabetic foot wound Interval history: 06/13: Ms. Sands is a 66 year old F history of morbid obesity, type 2 diabetes mellitus, asthma, essential hypertension's, presenting with 2-day history of right foot ulcer at her also. Prior similar episode was about a month ago on her right fifth toe. She does not remember any trauma or injury to the site. 2 days ago she had a low-grade fever temperature 98 according to patient's. She also had diarrhea 3 days ago. Yesterday she woke up discovering a blister measuring 5 x 7 to 10 cm in the sole of her right foot. She denies any pain because she cannot feel any pain secondary to diabetic neuropathy. She currently does not have any subjective or objective fever or any shaking chills. No change in her appetite. She presented to her PCP clinics earlier today for a wound debridement but she was sent by the PCP to our ED for further evaluations. Vital signs are within normal limits upon ER presentations. Labs significant for leukocytosis with WBC 12.1. Serum glucose level 376. No imaging available. 06/14: Afebrile overnight. Right foot X ray no signs of osteomyelitis. Blood and wound cultures no growth to date. Denies any fever or chills. Denies any foot pain currently. 06/15: No new complaints. Has been seen by Dr. Garza. No current indication for operative intervention. Remains on vancomycin and piperacillin/tazobactam. Awaiting final sensitivities of staph aureus from foot culture to narrow therapy. Constitutional Vitals: Vital Signs Temp Pulse Resp BP Pulse Ox 96.9 F L 71 18 122/60 96 06/15/21 15:43 06/15/21 15:43 06/15/21 15:43 06/15/21 15:43 06/15/21 15:43 Period Temp Pulse Resp BP Sys/Torres Pulse Ox Last 24 Hr 96.9 F-98 F 54-77 16-20 97-144/53-63 96-97 Intake and Output 06/15/21 06/15/21 06/15/21 05:59 13:59 21:59 Intake Total 350 1350 1580 Balance 350 1350 1580 Intake & Output: Intake & Output 06/15/21 06/15/21 06/15/21 05:59 13:59 21:59 Intake Total 350 1350 1580 Balance 350 1350 1580 Intake: IV 50 550 100 Zosyn 3.375 gm In Dextrose 5% 50 50 100 in Water 50 ml @ 100 mls/hr IV Q6H [facility] Rx#:[id number] Vancomycin 1,500 mg In Sodium 500 Chloride 0.9% 500 ml @ 333.3 mls/hr IV Q12H [facility] Rx#: [id number] Oral [phone] Other: Meal Dinner Percent of Meal Consumed 50% 100% Feeding Ability Independent Urine Appearance Clear Urine Color Bright Yellow Stool Size Small Stool Color Brown Stool Consistency Formed # Voids 3 1 # Bowel Movements 0 1 GENERAL: Sitting in bed no acute distress RESPIRATORY: Clear to auscultation CARDIOVASCULAR: Regular rate and rhythm ABDOMEN: Soft, nontender EXTREMITIES: Right foot undressed, unroofed ulcer along plantar aspect of foot. Erythema at midfoot tracking towards the dorsum of the foot remains within outlines drawn previously NEURO: Alert, oriented x3, no sensation to touch in right foot. OBJ DATA Labs CBC & Chem 7: 06/15/21 05:17 06/15/21 05:17 Labs: Abnormal Lab Results 06/15/21 06/15/21 06/14/21 05:17 05:17 05:45 WBC Hgb 11.1 L MPV 11.8 H Neut % (Auto) Lymph % (Auto) Lymph # (Auto) Carbon # (Auto) Absolute Neutrophils Sodium 132 L POC BUN Glucose 204 H 290 H POC Glucose Hemoglobin A1c POC WB Ioniz Calcium Triglycerides 177 H Procalcitonin 06/14/21 06/13/21 06/13/21 05:45 16:23 14:33 WBC Hgb MPV 11.9 H Neut % (Auto) Lymph % (Auto) Lymph # (Auto) Carbon # (Auto) 1.19 H Absolute Neutrophils Sodium POC BUN 22 H Glucose POC Glucose 376 H Hemoglobin A1c 8.9 H POC WB Ioniz Calcium 1.06 L Triglycerides Procalcitonin 06/13/21 06/13/21 14:23 13:23 WBC 12.1 H Hgb MPV 12.3 H Neut % (Auto) 80.0 H Lymph % (Auto) 11.4 L Lymph # (Auto) 1.39 L Carbon # (Auto) 0.94 H Absolute Neutrophils 9.70 H Sodium POC BUN Glucose POC Glucose Hemoglobin A1c POC WB Ioniz Calcium Triglycerides Procalcitonin 0.70 H Meds: Medications Acetaminophen (Acetaminophen 325 Mg Tablet) 650 mg PO Q6HP PRN; Protocol PRN Reason: Per Pain Protocol/Fever > 101 Acyclovir (Acyclovir 15 Gm Topoint) 1 gm TP 5XD PRN PRN Reason: Shingles Albuterol/Ipratropium (Ipratropium/Albuterol 3 Ml Ampul.Neb) 3 ml NEB Q4HP PRN PRN Reason: Shortness Of Breath Ascorbic Acid (Ascorbic Acid 500 Mg Tablet) 500 mg PO DAILY [facility] Last Admin: 06/15/21 09:15 Dose: 500 mg Documented by: Aspirin (Aspirin 81 Mg Tab.Chew) 81 mg PO DAILY [facility] Last Admin: 06/15/21 09:15 Dose: Not Given Documented by: Dextrose (Dextrose 50% 50 Ml Vial) 0 ml IV UD PRN PRN Reason: Hypoglycemia Diagnostic Test (Pha) (Accu-Chek 1 Each Strip) 1 each FS ACHS [facility] Last Admin: 06/15/21 17:44 Dose: 1 each Documented by: Docusate Sodium (Docusate Sodium 100 Mg Capsule) 100 mg PO BID [facility] Last Admin: 06/15/21 09:14 Dose: 100 mg Documented by: Fluticasone Propionate (Fluticasone Propionate [place].Yehuda) 1 spray NS BID [facility] Last Admin: 06/15/21 09:17 Dose: Not Given Documented by: Furosemide (Furosemide 40 Mg Tablet) 40 mg PO DAILY [facility] Last Admin: 06/15/21 09:15 Dose: 40 mg Documented by: Glucose (Dextrose 31 Gm Oral.Susp) 15 gm PO PRN PRN PRN Reason: Hypoglycemia Guaifenesin (Guaifenesin 600 Mg Tab.Sr.12h) 600 mg PO BIDP PRN PRN Reason: Congestion Heparin Sodium (Porcine) (Heparin 5,000 Unit/Ml Vial) 5,000 unit SQ Q12 [facility] Last Admin: 06/15/21 09:16 Dose: Not Given Documented by: Hydrochlorothiazide (Hydrochlorothiazide 25 Mg Tablet) 25 mg PO DAILY [facility] Hydroxychloroquine Sulfate (Hydroxychloroquine 200 Mg Tablet) 200 mg PO Th@0900 [facility] Piperacillin Sod/Tazobactam (Sod 3.375 gm/ Dextrose) 50 mls @ 100 mls/hr IV Q6H [facility]; Protocol Last Infusion: 06/15/21 18:17 Dose: Infused Documented by: Vancomycin HCl 1,500 mg/ (Sodium Chloride) 500 mls @ 333.3 mls/hr IV Q12H [facility] Last Infusion: 06/15/21 13:36 Dose: Infused Documented by: Ibuprofen (Ibuprofen 200 Mg Tablet) 200 mg PO TIDP PRN PRN Reason: Pain Insulin Glargine (Insulin Glargine, Human 1 Unit/0.01 Ml) 8 unit SQ BID [facility] Last Admin: 06/15/21 09:18 Dose: 8 units Documented by: Insulin Human Lispro (Insulin Lispro 1 Unit/0.01 Ml Unit) 0 unit SQ ACHS [facility]; Protocol Last Admin: 06/15/21 17:44 Dose: Not Given Documented by: Losartan Potassium (Losartan 25 Mg Tablet) 25 mg PO DAILY [facility] Last Admin: 06/15/21 09:15 Dose: 25 mg Documented by: Montelukast Sodium (Montelukast 10 Mg Tablet) 10 mg PO HS [facility] Last Admin: 06/14/21 20:12 Dose: Not Given Documented by: Morphine Sulfate (Morphine 4 Mg/Ml Vial) 4 mg IV Q4HP PRN; Protocol PRN Reason: Per Pain Protocol Ondansetron HCl (Ondansetron 4 Mg/2 Ml Vial) 4 mg IV Q6HP PRN PRN Reason: Nausea And Vomiting Oxycodone HCl (Oxycodone Hcl 5 Mg Tablet) 5 mg PO Q4HP PRN; Protocol PRN Reason: Per Pain Protocol Potassium Chloride (Potassium Chloride 20 Meq Tablet) 20 meq PO QAMCC [facility] Last Admin: 06/15/21 09:15 Dose: 20 meq Documented by: Pregabalin (Pregabalin 75 Mg Capsule) 75 mg PO TID [facility] Last Admin: 06/15/21 14:03 Dose: Not Given Documented by: Pseudoephedrine HCl (Pseudoephedrine 30 Mg Tablet) 30 mg PO BIDP PRN PRN Reason: Congestion Senna (Sennosides 1 Tablet) 2 tab PO [facility] Last Admin: 06/14/21 20:12 Dose: Not Given Documented by: Simvastatin (Simvastatin 40 Mg Tablet) 40 mg PO HS [facility] Last Admin: 06/14/21 20:12 Dose: Not Given Documented by: Sodium Chloride (0.9 % Sodium Chloride 10 Ml Syringe) 10 ml IV Q8 [facility] Last Admin: 06/15/21 14:20 Dose: 10 ml Documented by: Vancomycin HCl (Vancomycin Per Pharmacy) 1 order IV UD [facility]; Protocol Vitamin D (Vitamin D3 5,000 Unit Capsule) 5,000 unit PO DAILY [facility] Last Admin: 06/15/21 09:15 Dose: 5,000 unit Documented by: Zolpidem Tartrate (Zolpidem 5 Mg Tablet) 5 mg PO HSP PRN PRN Reason: Insomnia A/P Narrative A/P Narrative: Assessment: Diabetic foot ulcer of the right foot, with associated diabetic neuropathy: -Wound culture with Staph aureus, MSSA (per fax from lab, not yet in computer) -Blood cultures no growth to date -Consult support coordinator Dr. Garza, recommendation appreciated -Right foot x-ray, no sgins of osteomyelitis -On vancomycin and piperacillin/tazobactam, can narrow with MSSA -Hemoglobin A1c 8.9 Type 2 diabetes mellitus -Holding oral hypoglycemics in inpatient setting -On 10 units Lantus twice daily -High-dose correctional scale insulin AC at bedtime -Accu-Chek AC at bedtime -Hypoglycemia protocol -Diabetic diet Essential hypertension: -Currently normotensive -Continue home regiment of oral antihypertensive Asthma: -Continue Fluticasone -DuoNeb nebulizer as needed wheezing Morbid obesity: -Counseled patient on importance he of lifestyle modification including regular exercise and balanced diet in order to lose weight Plan: Discontinue vancomycin and piperacillin/tazobactam Begin cefazolin Continue to follow white count Continue with pain control, oxycodone and morphine Continue with skilled therapies Continue Lantus twice daily Sliding scale insulin ordered, though patient is declining to use Continue home antihypertensives Continue fluticasone for history of asthma Time Spent With Patient Time: Total time spent is greater than 50% in coordination of care (as documented) at patient's floor/unit and/or counseling patient: Total time spent with greater than 50% in coordination of care (as documented) at patient's floor/unit and/or counseling patient:: 25 - 35 minutes QUALITY VTE Deep Vein Thrombosis/Pulmonary Embolism Present on Admission: No
[2021-06-15] MEDS: ceFAZolin 1 GM VIAL IV SCH (22:36)
[2021-06-15] MEDS ORDERED: ceFAZolin 1 GM VIAL ONE (22:36)
[2021-06-16] MEDS: ceFAZolin 1 GM VIAL IV SCH ×3 (05:41→21:09)
[2021-06-16] MEDS: 0.9 % SODIUM CHLORIDE 10 ML SYRINGE IV SCH ×3 (05:41→21:32)
[2021-06-16 06:46] LABS: Basophils # (Auto) 0.05 K/mcL (0.00-0.30); Basophils % (Auto) 0.8 % (0.0-2.0); Eosinophils # (Auto) 0.25 K/mcL (0.00-0.70); Eosinophils % (Auto) 4.2 % (0.0-7.0); Hematocrit 34.2 % (34.1-44.9); Hemoglobin 11.4 g/dL (11.2-15.7); Lymphocytes # (Auto) 2.44 K/mcL (1.50-4.80); Lymphocytes % (Auto) 41.1 % (15.5-49.0); Mean Cell Volume 94.5 fL (80.0-100.0); Mean Corpuscular HGB Conc 33.3 g/dL (31.0-36.0); Mean Platelet Volume 11.9 fL (7.4-10.4); Monocytes # (Auto) 0.55 K/mcL (0.10-0.90); Monocytes % (Auto) 9.3 % (1.0-12.0); Neutrophils % (Auto) 44.6 % (38.0-78.0); Platelet Count 188 K/mcL (140-440); RBC 3.62 M/mcL (3.59-5.38); Red Cell Distribution Width 12.9 % (11.5-14.5); WBC 5.9 K/mcL (4.5-11.0)
[2021-06-16 07:10] LABS: Blood Urea Nitrogen 21 mg/dL (8-23); Calcium 9.3 mg/dL (8.6-10.4); Carbon Dioxide 24 mmol/L (22-30); Chloride 102 mmol/L (96-108); Glomerular Filtration Rate 96; Glucose 159 mg/dL (70-105)
--- NOTE | 2021-06-16 07:59 | Internal Med Progress Note ---
SUBJECTIVE Subjective Patient information: Note initiated : 06/16/21 at 7:58 am Service Date, if different from initiated Date: [] Patient: Grace Sands 66 y/o F admitted on 06/13/21 for infected wound. Chief Complaint: f/u diabetic foot wound Interval history: 06/13: Ms. Sands is a 66 year old F history of morbid obesity, type 2 diabetes mellitus, asthma, essential hypertension's, presenting with 2-day history of right foot ulcer at her also. Prior similar episode was about a month ago on her right fifth toe. She does not remember any trauma or injury to the site. 2 days ago she had a low-grade fever temperature 98 according to patient's. She also had diarrhea 3 days ago. Yesterday she woke up discovering a blister measuring 5 x 7 to 10 cm in the sole of her right foot. She denies any pain because she cannot feel any pain secondary to diabetic neuropathy. She currently does not have any subjective or objective fever or an y shaking chills. No change in her appetite. She presented to her PCP clinics earlier today for a wound debridement but she was sent by the PCP to our ED for further evaluations. Vital signs are within normal limits upon ER presentations. Labs significant for leukocytosis with WBC 12.1. Serum glucose level 376. No imaging available. 06/14: Afebrile overnight. Right foot X ray no signs of osteomyelitis. Blood and wound cultures no growth to date. Denies any fever or chills. Denies any laura t pain currently. 06/15: No new complaints. Has been seen by Dr. Garza. No current indication for operative intervention. Remains on vancomycin and piperacillin/tazobactam. Awaiting final sensitivities of staph aureus from foot culture to narrow therapy. 06/16: Starting to feel better today. Was able to keep her foot elevated most of the day yesterday. Notes glucoses are becoming easier to control. Constitutional Vitals: Vital Signs Temp Pulse Resp BP Pulse Ox 97.1 F 52 L 20 103/56 97 06/16/21 05:42 06/16/21 05:42 06/16/21 05:42 06/16/21 05:42 06/16/21 05:42 Period Temp Pulse Resp BP Sys/Torres Pulse Ox Last 24 Hr 96.9 F-98 F 52-77 18-20 103-151/56-74 96-97 Intake and Output 06/15/21 06/16/21 06/16/21 21:59 05:59 13:59 Intake Total 2079 400 Balance 2080 400 Weight 265 lb Intake & Output: Intake & Output 06/15/21 06/16/21 06/16/21 21:59 05:59 13:59 Intake Total 2079 400 Balance 2080 400 Weight 265 lb Intake: IV 600 Zosyn 3.375 gm In Dextrose 5% 100 in Water 50 ml @ 100 mls/hr IV Q6H [facility] Rx#:[id number] Vancomycin 1,500 mg In Sodium 500 Chloride 0.9% 500 ml @ 333.3 mls/hr IV Q12H [facility] Rx#: [id number] Oral 1480 400 Other: Meal Dinner Percent of Meal Consumed 100% Urine Appearance Clear Urine Color Bright Yellow # Voids 3 # Bowel Movements 0 GENERAL: Sitting up at edge of bed no acute distress RESPIRATORY: Clear bilaterally, unlabored CARDIOVASCULAR: Regular rate and rhythm ABDOMEN: Active bowel sounds EXTREMITIES: Right foot with mild seepage through lateral aspect of dressing. Wound base clean. Erythema tracking to the dorsum of the midfoot both laterally and medially is lessening, remains within drawn margins. NEURO: Alert, oriented x3, no sensation in feet OBJ DATA Labs CBC & Chem 7: 06/16/21 05:20 06/16/21 05:20 Labs: Abnormal Lab Results 06/16/21 06/16/21 06/15/21 05:20 05:20 05:17 WBC Hgb MPV 11.9 H Neut % (Auto) Lymph % (Auto) Lymph # (Auto) [place] # (Auto) Absolute Neutrophils Sodium POC BUN Glucose 159 H 204 H POC Glucose Hemoglobin A1c POC WB Ioniz Calcium Triglycerides 177 H Procalcitonin 06/15/21 06/14/21 06/14/21 05:17 05:45 05:45 WBC Hgb 11.1 L MPV 11.8 H 11.9 H Neut % (Auto) Lymph % (Auto) Lymph # (Auto) Boyle # (Auto) 1.19 H Absolute Neutrophils Sodium 132 L POC BUN Glucose 290 H POC Glucose Hemoglobin A1c POC WB Ioniz Calcium Triglycerides Procalcitonin 06/13/21 06/13/21 06/13/21 16:23 14:33 14:23 WBC Hgb MPV Neut % (Auto) Lymph % (Auto) Lymph # (Auto) Boyle # (Auto) Absolute Neutrophils Sodium POC BUN 22 H Glucose POC Glucose 376 H Hemoglobin A1c 8.9 H POC WB Ioniz Calcium 1.06 L Triglycerides Procalcitonin 0.70 H 06/13/21 13:23 WBC 12.1 H Hgb MPV 12.3 H Neut % (Auto) 80.0 H Lymph % (Auto) 11.4 L Lymph # (Auto) 1.39 L Boyle # (Auto) 0.94 H Absolute Neutrophils 9.70 H Sodium POC BUN Glucose POC Glucose Hemoglobin A1c POC WB Ioniz Calcium Triglycerides Procalcitonin Meds: Medications Acetaminophen (Acetaminophen 325 Mg Tablet) 650 mg PO Q6HP PRN; Protocol PRN Reason: Per Pain Protocol/Fever > 101 Acyclovir (Acyclovir 15 Gm Topoint) 1 gm TP 5XD PRN PRN Reason: Shingles Albuterol/Ipratropium (Ipratropium/Albuterol 3 Ml Ampul.Neb) 3 ml NEB Q4HP PRN PRN Reason: Shortness Of Breath Ascorbic Acid (Ascorbic Acid 500 Mg Tablet) 500 mg PO DAILY [facility] Last Admin: 06/15/21 09:15 Dose: 500 mg Documented by: Aspirin (Aspirin 81 Mg Tab.Chew) 81 mg PO DAILY [facility] Last Admin: 06/15/21 09:15 Dose: Not Given Documented by: Cefazolin Sodium (Cefazolin 1 Gm Vial) 1 gm IV Q8H [facility]; Protocol Last Admin: 06/16/21 05:41 Dose: 1 gm Documented by: Dextrose (Dextrose 50% 50 Ml Vial) 0 ml IV UD PRN PRN Reason: Hypoglycemia Diagnostic Test (Pha) (Accu-Chek 1 Each Strip) 1 each FS ACHS [facility] Last Admin: 06/15/21 20:12 Dose: 1 each Documented by: Docusate Sodium (Docusate Sodium 100 Mg Capsule) 100 mg PO BID [facility] Last Admin: 06/15/21 20:13 Dose: Not Given Documented by: Fluticasone Propionate (Fluticasone Propionate [place].Yehuda) 1 spray NS BID [facility] Last Admin: 06/15/21 20:13 Dose: Not Given Documented by: Furosemide (Furosemide 40 Mg Tablet) 40 mg PO DAILY [facility] Last Admin: 06/15/21 09:15 Dose: 40 mg Documented by: Glucose (Dextrose 31 Gm Oral.Susp) 15 gm PO PRN PRN PRN Reason: Hypoglycemia Guaifenesin (Guaifenesin 600 Mg Tab.Sr.12h) 600 mg PO BIDP PRN PRN Reason: Congestion Heparin Sodium (Porcine) (Heparin 5,000 Unit/Ml Vial) 5,000 unit SQ Q12 [facility] Last Admin: 06/15/21 20:13 Dose: Not Given Documented by: Hydrochlorothiazide (Hydrochlorothiazide 25 Mg Tablet) 25 mg PO DAILY [facility] Hydroxychloroquine Sulfate (Hydroxychloroquine 200 Mg Tablet) 200 mg PO Th@0900 [facility] Ibuprofen (Ibuprofen 200 Mg Tablet) 200 mg PO TIDP PRN PRN Reason: Pain Insulin Glargine (Insulin Glargine, Human 1 Unit/0.01 Ml) 8 unit SQ BID [facility] Last Admin: 06/15/21 20:17 Dose: Not Given Documented by: Insulin Human Lispro (Insulin Lispro 1 Unit/0.01 Ml Unit) 0 unit SQ ACHS [facility]; Protocol Last Admin: 06/15/21 20:13 Dose: Not Given Documented by: Losartan Potassium (Losartan 25 Mg Tablet) 25 mg PO DAILY [facility] Last Admin: 06/15/21 09:15 Dose: 25 mg Documented by: Montelukast Sodium (Montelukast 10 Mg Tablet) 10 mg PO HS [facility] Last Admin: 06/15/21 20:14 Dose: Not Given Documented by: Morphine Sulfate (Morphine 4 Mg/Ml Vial) 4 mg IV Q4HP PRN; Protocol PRN Reason: Per Pain Protocol Ondansetron HCl (Ondansetron 4 Mg/2 Ml Vial) 4 mg IV Q6HP PRN PRN Reason: Nausea And Vomiting Oxycodone HCl (Oxycodone Hcl 5 Mg Tablet) 5 mg PO Q4HP PRN; Protocol PRN Reason: Per Pain Protocol Potassium Chloride (Potassium Chloride 20 Meq Tablet) 20 meq [facility] Last Admin: 06/15/21 09:15 Dose: 20 meq Documented by: Pregabalin (Pregabalin 75 Mg Capsule) 75 mg PO TID [facility] Last Admin: 06/15/21 20:13 Dose: 75 mg Documented by: Pseudoephedrine HCl (Pseudoephedrine 30 Mg Tablet) 30 mg PO BIDP PRN PRN Reason: Congestion Senna (Sennosides 1 Tablet) 2 tab PO HS [facility] Last Admin: 06/15/21 20:14 Dose: Not Given Documented by: Simvastatin (Simvastatin 40 Mg Tablet) 40 mg PO HS [facility] Last Admin: 06/15/21 20:14 Dose: Not Given Documented by: Sodium Chloride (0.9 % Sodium Chloride 10 Ml Syringe) 10 ml IV Q8 [facility] Last Admin: 06/16/21 05:41 Dose: 10 ml Documented by: Vitamin D (Vitamin D3 5,000 Unit Capsule) 5,000 unit PO DAILY [facility] Last Admin: 06/15/21 09:15 Dose: 5,000 unit Documented by: Zolpidem Tartrate (Zolpidem 5 Mg Tablet) 5 mg PO HSP PRN PRN Reason: Insomnia A/P Narrative A/P Narrative: Assessment: Diabetic foot ulcer of the right foot, with associated diabetic neuropathy: -Wound culture with Staph aureus, MSSA (per fax from lab, not yet in computer) -Blood cultures no growth to date -Consult cash van salesperson Dr. Garza, recommendation appreciated -Right foot x-ray, no sgins of osteomyelitis -On vancomycin and piperacillin/tazobactam, can narrow with MSSA -Hemoglobin A1c 8.9 Type 2 diabetes mellitus -Holding oral hypoglycemics in inpatient setting -On 10 units Lantus twice daily -High-dose correctional scale insulin AC at bedtime -Accu-Chek AC at bedtime -Hypoglycemia protocol -Diabetic diet Essential hypertension: -Currently normotensive -Continue home regiment of oral antihypertensive Asthma: -Continue Fluticasone -DuoNeb nebulizer as needed wheezing Morbid obesity: -Counseled patient on importance he of lifestyle modification including regular exercise and balanced diet in order to lose weight Plan: * Continue cefazolin started 06/15 (vancomycin and piperacillin/tazobactam stopped 06/15) * Continue to trend white count * Continue with wound care * Continue with pain control with oxycodone and morphine * Continue with twice daily Lantus * Encourage use of sliding scale insulin, patient has been declining * Continue home antihypertensives * Continue fluticasone for history of asthma * Likely another 2-3 days of IV antibiotics, then consideration for transition to orals if continuing to improve Time Spent With Patient Time: Total time spent is greater than 50% in coordination of care (as documented) at patient's floor/unit and/or counseling patient: Total time spent with greater than 50% in coordination of care (as documented) at patient's floor/unit and/or counseling patient:: 25 - 35 minutes QUALITY VTE Deep Vein Thrombosis/Pulmonary Embolism Present on Admission: No
[2021-06-16] MEDS: INSULIN LISPRO 1 UNIT/0.01 ML UNIT SQ SCH ×4 (08:18→21:30)
[2021-06-16] MEDS: INSULIN GLARGINE, HUMAN 1 UNIT/0.01 ML SQ SCH ×3 (08:19→21:33)
[2021-06-16] MEDS: VITAMIN D3 5,000 UNIT TABLET PO SCH (08:25)
[2021-06-16] MEDS: ASCORBIC ACID 500 MG TABLET PO SCH (08:25)
[2021-06-16] MEDS: LOSARTAN 25 MG TABLET PO SCH (08:25)
[2021-06-16] MEDS: POTASSIUM CHLORIDE 20 MEQ TABLET PO SCH (08:25)
[2021-06-16] MEDS: PREGABALIN 75 MG CAPSULE PO SCH ×3 (08:25→21:08)
[2021-06-16] MEDS: FUROSEMIDE 40 MG TABLET PO SCH (08:25)
[2021-06-16] MEDS: HYDROCHLOROTHIAZIDE 25 MG TABLET PO SCH (08:28)
[2021-06-16] MEDS: DOCUSATE SODIUM 100 MG CAPSULE PO SCH ×2 (08:38→21:29)
[2021-06-16] MEDS: HEPARIN 5,000 UNIT/ML VIAL SQ SCH ×2 (08:38→21:29)
[2021-06-16] MEDS: FLUTICASONE PROPIONATE SPRAY.NAS NS SCH ×2 (08:38→21:29)
[2021-06-16] MEDS: ASPIRIN 81 MG TAB.CHEW PO SCH (08:38)
[2021-06-16] MEDS: MONTELUKAST 10 MG TABLET PO SCH (21:31)
[2021-06-16] MEDS: SENNOSIDES 1 TABLET PO SCH (21:31)
[2021-06-16] MEDS: SIMVASTATIN 40 MG TABLET PO SCH (21:31)
[2021-06-17] MEDS: ceFAZolin 1 GM VIAL IV SCH ×3 (05:25→21:45)
[2021-06-17] MEDS: 0.9 % SODIUM CHLORIDE 10 ML SYRINGE IV SCH ×3 (05:25→21:46)
[2021-06-17 07:12] LABS: Basophils # (Auto) 0.05 K/mcL (0.00-0.30); Basophils % (Auto) 0.7 % (0.0-2.0); Eosinophils # (Auto) 0.31 K/mcL (0.00-0.70); Eosinophils % (Auto) 4.5 % (0.0-7.0); Hematocrit 37.5 % (34.1-44.9); Lymphocytes # (Auto) 2.42 K/mcL (1.50-4.80); Lymphocytes % (Auto) 34.8 % (15.5-49.0); Mean Cell Volume 94.9 fL (80.0-100.0); Mean Platelet Volume 11.3 fL (7.4-10.4); Monocytes # (Auto) 0.57 K/mcL (0.10-0.90); Monocytes % (Auto) 8.2 % (1.0-12.0); Neutrophils % (Auto) 51.8 % (38.0-78.0); Platelet Count 216 K/mcL (140-440); RBC 3.95 M/mcL (3.59-5.38); Red Cell Distribution Width 12.8 % (11.5-14.5)
[2021-06-17] MEDS: INSULIN LISPRO 1 UNIT/0.01 ML UNIT SQ SCH ×4 (07:36→20:32)
[2021-06-17 07:37] LABS: Albumin 3.4 gm/dL (3.2-5.2); Blood Urea Nitrogen 19 mg/dL (8-23); Calcium 9.7 mg/dL (8.6-10.4); Carbon Dioxide 25 mmol/L (22-30); Chloride 103 mmol/L (96-108); Glomerular Filtration Rate 91; Glucose 188 mg/dL (70-105); Phosphorous 3.6 mg/dL (2.5-4.5)
[2021-06-17] MEDS: INSULIN GLARGINE, HUMAN 1 UNIT/0.01 ML SQ SCH ×3 (07:37→17:00)
[2021-06-17] MEDS: POTASSIUM CHLORIDE 20 MEQ TABLET PO SCH (07:37)
[2021-06-17] MEDS: VITAMIN D3 5,000 UNIT TABLET PO SCH (07:37)
[2021-06-17] MEDS: ASCORBIC ACID 500 MG TABLET PO SCH (07:37)
[2021-06-17] MEDS: HYDROCHLOROTHIAZIDE 25 MG TABLET PO SCH (07:37)
[2021-06-17] MEDS: FUROSEMIDE 40 MG TABLET PO SCH (07:38)
[2021-06-17] MEDS: DOCUSATE SODIUM 100 MG CAPSULE PO SCH ×2 (07:47→20:31)
[2021-06-17] MEDS: ASPIRIN 81 MG TAB.CHEW PO SCH (07:47)
[2021-06-17] MEDS: FLUTICASONE PROPIONATE SPRAY.NAS NS SCH ×2 (07:47→20:31)
[2021-06-17] MEDS: LOSARTAN 25 MG TABLET PO SCH (07:47)
[2021-06-17] MEDS: PREGABALIN 75 MG CAPSULE PO SCH ×3 (07:48→20:31)
[2021-06-17] MEDS: HEPARIN 5,000 UNIT/ML VIAL SQ SCH (07:48)
--- NOTE | 2021-06-17 17:26 | Internal Med Progress Note ---
SUBJECTIVE Subjective Patient information: Note initiated : 06/17/21 at 5:23 pm Service Date, if different from initiated Date: [] Patient: Grace Sands 66 y/o F admitted on 06/13/21 for infected wound. Chief Complaint: [right foot infection] Principal diagnosis: dFU Interval history: pt says wound has decreased erythema and pain and wound RN said is improving. P wants to know if can go home soon. Im told by RD that pt is on keto diet and refuse carbohydrates at all. She doesnt indulge in sweets though per RD and RN. Constitutional Vitals: Vital Signs Temp Pulse Resp BP Pulse Ox 96.5 F L 63 19 156/71 94 06/17/21 15:54 06/17/21 15:54 06/17/21 15:54 06/17/21 15:54 06/17/21 15:54 Period Temp Pulse Resp BP Sys/Torres Pulse Ox Last 24 Hr 96.5 F-98 F 50-63 16-19 114-156/54-74 94-98 Intake and Output 06/17/21 06/17/21 06/17/21 05:59 13:59 21:59 Intake Total 800 1000 1600 Balance 800 1000 1600 Intake & Output: Intake & Output 06/17/21 06/17/21 06/17/21 05:59 13:59 21:59 Intake Total 800 1000 1600 Balance 800 1000 1600 Intake: Oral 800 1000 1600 Other: Meal Breakfast Lunch Percent of Meal Consumed 100% 100% Urine Appearance Clear Urine Color Bright Yellow Stool Size Moderate Stool Color Brown Green Stool Consistency Liquid # Voids 3 1 # Bowel Movements 0 1 Additional findings Additional findings: GEN WDWN WF morbidly obese CV RRR Lungs CTA calves right mild larger than left no tenderness skin warm and dry. Bandage on right foot but no erythema outside kerlix bandage. exam pt with modest sensation. cant feel toes specifically but cant tell when dorsum of feet contacted and sensitivity intact above ankle. OBJ DATA Labs CBC & Chem 7: 06/17/21 06:09 06/17/21 06:09 Labs: Abnormal Lab Results 06/17/21 06/17/21 06/16/21 06:09 06:09 05:20 Hgb MPV 11.3 H Glucose 188 H 159 H Triglycerides 06/16/21 06/15/21 06/15/21 05:20 05:17 05:17 Hgb 11.1 L MPV 11.9 H 11.8 H Glucose 204 H Triglycerides 177 H Meds: Medications Acetaminophen (Acetaminophen 325 Mg Tablet) 650 mg PO Q6HP PRN; Protocol PRN Reason: Per Pain Protocol/Fever > 101 Acyclovir (Acyclovir 15 Gm Topoint) 1 gm TP 5XD PRN PRN Reason: Shingles Albuterol/Ipratropium (Ipratropium/Albuterol 3 Ml Ampul.Neb) 3 ml NEB Q4HP PRN PRN Reason: Shortness Of Breath Ascorbic Acid (Ascorbic Acid 500 Mg Tablet) 500 mg PO DAILY [facility] Last Admin: 06/17/21 07:37 Dose: 500 mg Documented by: Aspirin (Aspirin 81 Mg Tab.Chew) 81 mg PO DAILY [facility] Last Admin: 06/17/21 07:47 Dose: Not Given Documented by: Cefazolin Sodium (Cefazolin 1 Gm Vial) 1 gm IV Q8H [facility]; Protocol Last Admin: 06/17/21 14:57 Dose: 1 gm Documented by: Dextrose (Dextrose 50% 50 Ml Vial) 0 ml IV UD PRN PRN Reason: Hypoglycemia Diagnostic Test (Pha) (Accu-Chek 1 Each Strip) 1 each FS ACHS [facility] Last Admin: 06/17/21 12:30 Dose: Not Given Documented by: Docusate Sodium (Docusate Sodium 100 Mg Capsule) 100 mg PO BID [facility] Last Admin: 06/17/21 07:47 Dose: Not Given Documented by: Fluticasone Propionate (Fluticasone Propionate [place].Yehuda) 1 spray NS BID [facility] Last Admin: 06/17/21 07:47 Dose: Not Given Documented by: Furosemide (Furosemide 40 Mg Tablet) 40 mg PO DAILY [facility] Last Admin: 06/17/21 07:38 Dose: 40 mg Documented by: Glucose (Dextrose 31 Gm Oral.Susp) 15 gm PO PRN PRN PRN Reason: Hypoglycemia Guaifenesin (Guaifenesin 600 Mg Tab.Sr.12h) 600 mg PO BIDP PRN PRN Reason: Congestion Heparin Sodium (Porcine) (Heparin 5,000 Unit/Ml Vial) 5,000 unit SQ Q12 [facility] Last Admin: 06/17/21 07:48 Dose: Not Given Documented by: Hydrochlorothiazide (Hydrochlorothiazide 25 Mg Tablet) 25 mg PO DAILY [facility] Last Admin: 06/17/21 07:37 Dose: 25 mg Documented by: Hydroxychloroquine Sulfate (Hydroxychloroquine 200 Mg Tablet) 200 mg PO Th@0900 [facility] Ibuprofen (Ibuprofen 200 Mg Tablet) 200 mg PO TIDP PRN PRN Reason: Pain Insulin Glargine (Insulin Glargine, Human 1 Unit/0.01 Ml) 8 unit SQ BID [facility] Last Admin: 06/17/21 07:38 Dose: 8 units Documented by: Insulin Human Lispro (Insulin Lispro 1 Unit/0.01 Ml Unit) 0 unit SQ [facility]; Protocol Last Admin: 06/17/21 12:29 Dose: Not Given Documented by: Losartan Potassium (Losartan 25 Mg Tablet) 25 mg PO DAILY [facility] Last Admin: 06/17/21 07:47 Dose: 25 mg Documented by: Montelukast Sodium (Montelukast 10 Mg Tablet) 10 mg PO [facility] Last Admin: 06/16/21 21:31 Dose: Not Given Documented by: Morphine Sulfate (Morphine 4 Mg/Ml Vial) 4 mg IV Q4HP PRN; Protocol PRN Reason: Per Pain Protocol Non-Formulary Medication (Metformin [Fortamet]) 2,000 mg PO DAILY [facility] Ondansetron HCl (Ondansetron 4 Mg/2 Ml Vial) 4 mg IV Q6HP PRN PRN Reason: Nausea And Vomiting Oxycodone HCl (Oxycodone Hcl 5 Mg Tablet) 5 mg PO Q4HP PRN; Protocol PRN Reason: Per Pain Protocol Potassium Chloride (Potassium Ch[facility] 20 Meq Tablet) [facility] Admin: 06/17/21 07:37 Dose: 20 meq Documented by: Pregabalin (Pregabalin 75 Mg Capsule) 75 mg PO TID [facility] Last Admin: 06/17/21 14:57 Dose: Not Given Documented by: Pseudoephedrine HCl (Pseudoephedrine 30 Mg Tablet) 30 mg PO BIDP PRN PRN Reason: Congestion Senna (Sennosides 1 Tablet) 2 tab PO [facility] Last Admin: 06/16/21 21:31 Dose: Not Given Documented by: Simvastatin (Simvastatin 40 Mg Tablet) 40 mg PO [facility] Last Admin: 06/16/21 21:31 Dose: Not Given Documented by: Sodium Chloride (0.9 % Sodium Chloride 10 Ml Syringe) 10 ml IV Q8 [facility] Last Admin: 06/17/21 14:57 Dose: 10 ml Documented by: Vitamin D (Vitamin D3 5,000 Unit Capsule) 5,000 unit PO DAILY [facility] Last Admin: 06/17/21 07:37 Dose: 5,000 unit Documented by: Zolpidem Tartrate (Zolpidem 5 Mg Tablet) 5 mg PO HSP PRN PRN Reason: Insomnia A/P Assessment and plan (1) Cellulitis of foot, right: Status: Acute Comment: continue cefazolin. anticipate home on keflex tomorrow. (2) Diabetic ulcer of right foot: Status: Acute Comment: as above and wound care (3) Type 2 diabetes mellitus with diabetic neuropathy, unspecified: Status: Chronic Comment: no pain (4) Right leg swelling: Status: Acute Comment: will proceed with doppler of right leg. also add lovenox dvt prophylaxis. Time Spent With Patient Time: Total time spent is greater than 50% in coordination of care (as documented) at patient's floor/unit and/or counseling patient: 30 mins QUALITY VTE Deep Vein Thrombosis/Pulmonary Embolism Present on Admission: No
[2021-06-17] MEDS: ENOXAPARIN 40 MG/0.4 ML SYRINGE SQ SCH (20:31)
[2021-06-17] MEDS: SIMVASTATIN 40 MG TABLET PO SCH (20:33)
[2021-06-17] MEDS: SENNOSIDES 1 TABLET PO SCH (20:33)
[2021-06-17] MEDS: MONTELUKAST 10 MG TABLET PO SCH (20:33)
[2021-06-17] MEDS: metFORMIN 500 MG TAB.XL.24H PO SCH (21:46)
[2021-06-18] MEDS: 0.9 % SODIUM CHLORIDE 10 ML SYRINGE IV SCH ×3 (05:24→21:16)
[2021-06-18] MEDS: ceFAZolin 1 GM VIAL IV SCH ×3 (05:24→21:15)
[2021-06-18] MEDS: INSULIN LISPRO 1 UNIT/0.01 ML UNIT SQ SCH ×4 (07:33→21:14)
[2021-06-18] MEDS: INSULIN GLARGINE, HUMAN 1 UNIT/0.01 ML SQ SCH ×2 (07:51→21:14)
[2021-06-18] MEDS: metFORMIN 500 MG TAB.XL.24H PO SCH ×2 (07:52→18:03)
[2021-06-18] MEDS: POTASSIUM CHLORIDE 20 MEQ TABLET PO SCH (07:52)
--- NOTE | 2021-06-18 08:27 | Ultrasound Report ---
INDICATION: right leg swelling and compared to left COMPARISON: None. TECHNIQUE: Grayscale and color flow Doppler spectral imaging of the deep venous system in the right lower extremity. FINDINGS: Negative examination. No evidence for deep venous thrombosis. Negative right common femoral vein, femoral vein, popliteal vein. Posterior tibial veins and peroneal veins are negative. Greater and lesser saphenous veins are negative. IMPRESSION: Negative examination for deep venous thrombosis. Negative right lower extremity deep venous ultrasound. Interpreted and Authenticated by: Jorge Alberto Grider 06/18/21
[2021-06-18] MEDS: DOCUSATE SODIUM 100 MG CAPSULE PO SCH ×2 (08:45→21:13)
[2021-06-18] MEDS: ASPIRIN 81 MG TAB.CHEW PO SCH (08:45)
[2021-06-18] MEDS: PREGABALIN 75 MG CAPSULE PO SCH ×3 (08:45→21:15)
[2021-06-18] MEDS: ENOXAPARIN 40 MG/0.4 ML SYRINGE SQ SCH (08:45)
[2021-06-18] MEDS: FLUTICASONE PROPIONATE SPRAY.NAS NS SCH ×2 (08:45→21:14)
[2021-06-18] MEDS: LOSARTAN 25 MG TABLET PO SCH (09:11)
[2021-06-18] MEDS: FUROSEMIDE 40 MG TABLET PO SCH (09:11)
[2021-06-18] MEDS: VITAMIN D3 5,000 UNIT TABLET PO SCH (09:11)
[2021-06-18] MEDS: ASCORBIC ACID 500 MG TABLET PO SCH (09:11)
[2021-06-18] MEDS: HYDROCHLOROTHIAZIDE 25 MG TABLET PO SCH (09:11)
--- NOTE | 2021-06-18 18:25 | Internal Med Progress Note ---
SUBJECTIVE Subjective Patient information: Note initiated : 06/18/21 at 6:19 pm Service Date, if different from initiated Date: [] Patient: Grace Sands 66 y/o F admitted on 06/13/21 for infected wound. Chief Complaint: [] Principal diagnosis: dFU Interval history: pt getting dressing change and I came to evaluate wound. Pt says cant feel her foot so no pain nurses report she refused asa today. not compliant with diabetic diet but doesnt eat sugar. wants to go home. Pertinent ROS: GEN no fevers CV chronic leg edema mild Additional PMFSH (Level 3 Only): NIDDM Noncompliance Constitutional Vitals: Vital Signs Temp Pulse Resp BP Pulse Ox 96.6 F L 62 20 154/69 97 06/18/21 16:00 06/18/21 16:00 06/18/21 16:00 06/18/21 16:00 06/18/21 16:00 Period Temp Pulse Resp BP Sys/Torres Pulse Ox Last 24 Hr 96.6 F-98.3 F 53-62 12-20 137-164/65-69 94-97 Intake and Output 06/18/21 06/18/21 06/18/21 05:59 13:59 21:59 Intake Total 150 Balance 150 Intake & Output: Intake & Output 06/18/21 06/18/21 06/18/21 05:59 13:59 21:59 Intake Total 150 Balance 150 Intake: Oral 150 Other: # Voids 0 1 1 Head Head exam: Present atraumatic and normal inspection Eye Eye exam: Present normal appearance ENT ENT exam: Present mucous membranes moist, normal exam and normal external ear exam Neck Neck exam: Present normal inspection Respiratory Respiratory exam: Present normal respiratory exam Cardiovascular Cardiovascular exam: Present normal rate and rhythm GI/Abdominal GI/Abdominal exam: Present normal bowel sounds Back Exam Back exam: Present normal inspection Neurological Exam Neurological exam: Present alert and oriented X3 Skin Skin exam: Present intact and warm Additional findings Additional findings: GEN WDWN WF in NAD CV RRR Lungs CTA no rales or wheezes Ment alert oriented pleasant Calves 1+ pretibial edema wound large on plantar sufaces. some edema soft tissue and dermal layers. no tenderness no purulence. US neg of DVT right leg pulses 2+ right DP and PT OBJ DATA Labs CBC & Chem 7: 06/17/21 06:09 06/17/21 06:09 Labs: Abnormal Lab Results 06/17/21 06/17/21 06/16/21 06:09 06:09 05:20 MPV 11.3 H Glucose 188 H 159 H 06/16/21 05:20 MPV 11.9 H Glucose Meds: Medications Acetaminophen (Acetaminophen 325 Mg Tablet) 650 mg PO Q6HP PRN; Protocol PRN Reason: Per Pain Protocol/Fever > 101 Acyclovir (Acyclovir 15 Gm Topoint) 1 gm TP 5XD PRN PRN Reason: Shingles Albuterol/Ipratropium (Ipratropium/Albuterol 3 Ml Ampul.Neb) 3 ml NEB Q4HP PRN PRN Reason: Shortness Of Breath Ascorbic Acid (Ascorbic Acid 500 Mg Tablet) 500 mg PO DAILY [facility] Last Admin: 06/18/21 09:11 Dose: 500 mg Documented by: Aspirin (Aspirin 81 Mg Tab.Chew) 81 mg PO DAILY [facility] Last Admin: 06/18/21 08:45 Dose: Not Given Documented by: Cefazolin Sodium (Cefazolin 1 Gm Vial) 1 gm IV Q8H [facility]; Protocol Last Admin: 06/18/21 13:54 Dose: 1 gm Documented by: Dextrose (Dextrose 50% 50 Ml Vial) 0 ml IV UD PRN PRN Reason: Hypoglycemia Diagnostic Test (Pha) (Accu-Chek 1 Each Strip) 1 each FS ACHS [facility] Last Admin: 06/18/21 16:54 Dose: 1 each Documented by: Docusate Sodium (Docusate Sodium 100 Mg Capsule) 100 mg PO BID [facility] Last Admin: 06/18/21 08:45 Dose: Not Given Documented by: Enoxaparin Sodium (Enoxaparin 40 Mg/0.4 Ml Syringe) 40 mg SQ DAILY [facility] Last Admin: 06/18/21 08:45 Dose: Not Given Documented by: Fluticasone Propionate (Fluticasone Propionate [place].Yehuda) 1 spray NS BID [facility] Last Admin: 06/18/21 08:45 Dose: Not Given Documented by: Furosemide (Furosemide 40 Mg Tablet) 40 mg PO DAILY [facility] Last Admin: 06/18/21 09:11 Dose: 40 mg Documented by: Glucose (Dextrose 31 Gm Oral.Susp) 15 gm PO PRN PRN PRN Reason: Hypoglycemia Guaifenesin (Guaifenesin 600 Mg Tab.Sr.12h) 600 mg PO BIDP PRN PRN Reason: Congestion Hydroxychloroquine Sulfate (Hydroxychloroquine 200 Mg Tablet) 200 mg PO Th@0900 [facility] Insulin Glargine (Insulin Glargine, Human 1 Unit/0.01 Ml) 8 unit SQ BID [facility] Last Admin: 06/18/21 07:51 Dose: 8 units Documented by: Insulin Human Lispro (Insulin Lispro 1 Unit/0.01 Ml Unit) 0 unit SQ [facility]; Protocol Last Admin: 06/18/21 16:54 Dose: Not Given Documented by: Losartan Potassium (Losartan 25 Mg Tablet) 25 mg PO DAILY [facility] Last Admin: 06/18/21 09:11 Dose: 25 mg Documented by: Montelukast Sodium (Montelukast 10 Mg Tablet) 10 mg PO [facility] Last Admin: 06/17/21 20:33 Dose: Not Given Documented by: Ondansetron HCl (Ondansetron 4 Mg/2 Ml Vial) 4 mg IV Q6HP PRN PRN Reason: Nausea And Vomiting Oxycodone HCl (Oxycodone Hcl 5 Mg Tablet) 5 mg PO Q4HP PRN; Protocol PRN Reason: Per Pain Protocol Potassium Chloride (Potassium Chloride 20 Meq Tablet) [facility] Last Admin: 06/18/21 07:52 Dose: 20 meq Documented by: Pregabalin (Pregabalin 75 Mg Capsule) 75 mg PO TID [facility] Last Admin: 06/18/21 13:55 Dose: Not Given Documented by: Senna (Sennosides 1 Tablet) 2 tab PO [facility] Last Admin: 06/17/21 20:33 Dose: Not Given Documented by: Simvastatin (Simvastatin 40 Mg Tablet) 40 mg PO [facility] Last Admin: 06/17/21 20:33 Dose: Not Given Documented by: Sodium Chloride (0.9 % Sodium Chloride 10 Ml Syringe) 10 ml IV Q8 [facility] Last Admin: 06/18/21 13:55 Dose: 10 ml Documented by: Spironolactone (Spironolactone 25 Mg Tablet) 25 mg PO DAILY [facility] Vitamin D (Vitamin D3 5,000 Unit Capsule) 5,000 unit PO DAILY [facility] Last Admin: 06/18/21 09:11 Dose: 5,000 unit Documented by: Zolpidem Tartrate (Zolpidem 5 Mg Tablet) 5 mg PO HSP PRN PRN Reason: Insomnia A/P Assessment and plan (1) Right leg swelling: Status: Acute Comment: leg doppler no clot will diurese gently (2) Cellulitis of foot, right: Status: Acute Comment: continue cefazolin. anticipate home on keflex in 2 days (3) Diabetic ulcer of right foot: Status: Acute Comment: as above and wound care change vaseline gauze to just plain nonadherent due to wound too moist (4) Type 2 diabetes mellitus with diabetic neuropathy, unspecified: Status: Chronic Comment: no pain cont lyrica encouraged pt to take 81 mg asa daily skip metformin and stop ibuprofen till renal function checked in am Time Spent With Patient Time: Total time spent is greater than 50% in coordination of care (as documented) at patient's floor/unit and/or counseling patient: 35 medication change hctz stopped start spironolactone 25 mg daily cont furosemide. labs in am to include procalcitonin and bmp and crp QUALITY VTE Deep Vein Thrombosis/Pulmonary Embolism Present on Admission: No
[2021-06-18] MEDS: SPIRONOLACTONE 25 MG TABLET PO SCH (21:12)
[2021-06-18] MEDS: MONTELUKAST 10 MG TABLET PO SCH (21:16)
[2021-06-18] MEDS: SENNOSIDES 1 TABLET PO SCH (21:16)
[2021-06-18] MEDS: SIMVASTATIN 40 MG TABLET PO SCH (21:16)
[2021-06-19] MEDS: ceFAZolin 1 GM VIAL IV SCH ×3 (05:33→20:43)
[2021-06-19] MEDS: 0.9 % SODIUM CHLORIDE 10 ML SYRINGE IV SCH ×3 (05:33→20:52)
[2021-06-19] MEDS: INSULIN LISPRO 1 UNIT/0.01 ML UNIT SQ SCH ×4 (07:56→20:42)
[2021-06-19] MEDS: DOCUSATE SODIUM 100 MG CAPSULE PO SCH ×2 (08:19→20:51)
[2021-06-19] MEDS: VITAMIN D3 5,000 UNIT TABLET PO SCH (08:37)
[2021-06-19] MEDS: ASPIRIN 81 MG TAB.CHEW PO SCH (08:37)
[2021-06-19] MEDS: FUROSEMIDE 40 MG TABLET PO SCH (08:37)
[2021-06-19] MEDS: SPIRONOLACTONE 25 MG TABLET PO SCH (08:37)
[2021-06-19] MEDS: LOSARTAN 25 MG TABLET PO SCH (08:37)
[2021-06-19] MEDS: POTASSIUM CHLORIDE 20 MEQ TABLET PO SCH (08:37)
[2021-06-19] MEDS: ENOXAPARIN 40 MG/0.4 ML SYRINGE SQ SCH (08:38)
[2021-06-19] MEDS: FLUTICASONE PROPIONATE SPRAY.NAS NS SCH ×2 (08:38→20:51)
[2021-06-19] MEDS: ASCORBIC ACID 500 MG TABLET PO SCH (08:38)
[2021-06-19] MEDS: INSULIN GLARGINE, HUMAN 1 UNIT/0.01 ML SQ SCH ×2 (08:38→20:42)
--- NOTE | 2021-06-19 12:01 | Internal Med Progress Note ---
SUBJECTIVE Subjective Patient information: Note initiated : 06/19/21 at 12:00 pm Service Date, if different from initiated Date: [] Patient: Grace Sands 66 y/o F admitted on 06/13/21 for infected wound. Principal diagnosis: dFU Interval history: pt getting dressing change and I came to evaluate wound. Pt says cant feel her foot so no pain nurses report she refused asa today. not compliant with diabetic diet but do esnt eat sugar. seen with Vicente from wound care. Looks like the unusual pattern on plantar surface of foot is granulation tissue. Pt agrees to stay until there is more coverage and toughness to dermis to allow her to go home on her own. Wants to drive and walk. Pt agrees to increase insulin. has been refusing asa and lovenox. Constitutional Vitals: Vital Signs Temp Pulse Resp BP Pulse Ox 96.5 F L 60 20 127/64 96 06/19/21 07:07 06/19/21 07:07 06/19/21 07:07 06/19/21 07:07 06/19/21 07:07 Period Temp Pulse Resp BP Sys/Torres Pulse Ox Last 24 Hr 96.5 F-97.7 F 54-62 20-20 121-161/63-69 93-97 Intake and Output 06/18/21 06/19/21 06/19/21 21:59 05:59 13:59 Intake Total 039 096 2717 Balance 739 993 7640 Weight 117.163 kg Intake & Output: Intake & Output 06/18/21 06/19/21 06/19/21 21:59 05:59 13:59 Intake Total 881 199 0702 Balance 669 157 6257 Weight 117.163 kg Intake: Oral 660 702 2446 Other: Meal Breakfast Percent of Meal Consumed 100% Stool Size Large # Voids 1 1 1 # Bowel Movements 1 Additional findings Additional findings: GEN WDWN WF in NAD CV RRR Lungs CTA calves 1+ edema bilat. mild tender bilat to this test left plantar foot with granulation tissue. no drainage. OBJ DATA Labs CBC & Chem 7: 06/17/21 06:09 06/17/21 06:09 Labs: Abnormal Lab Results 06/17/21 06/17/21 06:09 06:09 MPV 11.3 H Glucose 188 H Meds: Medications Acetaminophen (Acetaminophen 325 Mg Tablet) 650 mg PO Q6HP PRN; Protocol PRN Reason: Per Pain Protocol/Fever > 101 Acyclovir (Acyclovir 15 Gm Topoint) 1 gm TP 5XD PRN PRN Reason: Shingles Albuterol/Ipratropium (Ipratropium/Albuterol 3 Ml Ampul.Neb) 3 ml NEB Q4HP PRN PRN Reason: Shortness Of Breath Ascorbic Acid (Ascorbic Acid 500 Mg Tablet) 500 mg PO DAILY [facility] Last Admin: 06/19/21 08:38 Dose: 500 mg Documented by: Aspirin (Aspirin 81 Mg Tab.Chew) 81 mg PO DAILY [facility] Last Admin: 06/19/21 08:37 Dose: 81 mg Documented by: Cefazolin Sodium (Cefazolin 1 Gm Vial) 1 gm IV Q8H [facility]; Protocol Last Admin: 06/19/21 05:33 Dose: 1 gm Documented by: Dextrose (Dextrose 50% 50 Ml Vial) 0 ml IV UD PRN PRN Reason: Hypoglycemia Diagnostic Test (Pha) (Accu-Chek 1 Each Strip) 1 each FS ACHS [facility] Last Admin: 06/19/21 07:09 Dose: 1 each Documented by: Docusate Sodium (Docusate Sodium 100 Mg Capsule) 100 mg PO BID [facility] Last Admin: 06/19/21 08:19 Dose: Not Given Documented by: Enoxaparin Sodium (Enoxaparin 40 Mg/0.4 Ml Syringe) 40 mg SQ DAILY [facility] Last Admin: 06/19/21 08:38 Dose: 40 mg Documented by: Fluticasone Propionate (Fluticasone Propionate [place].Yehuda) 1 spray NS BID [facility] Last Admin: 06/19/21 08:38 Dose: Not Given Documented by: Furosemide (Furosemide 40 Mg Tablet) 40 mg PO DAILY [facility] Last Admin: 06/19/21 08:37 Dose: 40 mg Documented by: Glucose (Dextrose 31 Gm Oral.Susp) 15 gm PO PRN PRN PRN Reason: Hypoglycemia Guaifenesin (Guaifenesin 600 Mg Tab.Sr.12h) 600 mg PO BIDP PRN PRN Reason: Congestion Hydroxychloroquine Sulfate (Hydroxychloroquine 200 Mg Tablet) 200 mg PO Th@0900 [facility] Insulin Glargine (Insulin Glargine, Human 1 Unit/0.01 Ml) 8 unit SQ BID [facility] Last Admin: 06/19/21 08:38 Dose: 8 units Documented by: Insulin Human Lispro (Insulin Lispro 1 Unit/0.01 Ml Unit) 0 unit SQ [facility]; Protocol Last Admin: 06/19/21 07:56 Dose: Not Given Documented by: Losartan Potassium (Losartan 25 Mg Tablet) 25 mg PO DAILY [facility] Last Admin: 06/19/21 08:37 Dose: 25 mg Documented by: Montelukast Sodium (Montelukast 10 Mg Tablet) 10 mg PO [facility] Last Admin: 06/18/21 21:16 Dose: Not Given Documented by: Ondansetron HCl (Ondansetron 4 Mg/2 Ml Vial) 4 mg IV Q6HP PRN PRN Reason: Nausea And Vomiting Oxycodone HCl (Oxycodone Hcl 5 Mg Tablet) 5 mg PO Q4HP PRN; Protocol PRN Reason: Per Pain Protocol Potassium Chloride (Potassium Chloride 20 Meq Tablet) [facility] Last Admin: 06/19/21 08:37 Dose: 20 meq Documented by: Pregabalin (Pregabalin 75 Mg Capsule) 75 mg PO [facility] Last Admin: 06/18/21 21:15 Dose: 75 mg Documented by: Senna (Sennosides 1 Tablet) 2 tab PO [facility] Last Admin: 06/18/21 21:16 Dose: Not Given Documented by: Simvastatin (Simvastatin 40 Mg Tablet) 40 mg PO [facility] Last Admin: 06/18/21 21:16 Dose: Not Given Documented by: Sodium Chloride (0.9 % Sodium Chloride 10 Ml Syringe) 10 ml IV Q8 [facility] Last Admin: 06/19/21 05:33 Dose: 10 ml Documented by: Spironolactone (Spironolactone 25 Mg Tablet) 25 mg PO DAILY [facility] Last Admin: 06/19/21 08:37 Dose: 25 mg Documented by: Vitamin D (Vitamin D3 5,000 Unit Capsule) 5,000 unit PO DAILY [facility] Last Admin: 06/19/21 08:37 Dose: 5,000 unit Documented by: Zolpidem Tartrate (Zolpidem 5 Mg Tablet) 5 mg PO [facility] PRN PRN Reason: Insomnia A/P Assessment and plan (1) Right leg swelling: Status: Acute Comment: leg doppler no clot will diurese gently pt counseled medication changes to help with diuresis (2) Cellulitis of foot, right: Status: Acute Comment: continue cefazolin. anticipate home on keflex in 2 days (3) Diabetic ulcer of right foot: Status: Acute Comment: as above and wound care wound looks ok cont nonadherent dressing. all have some vaseline. not overly moist today (4) Type 2 diabetes mellitus with diabetic neuropathy, unspecified: Status: Chronic Comment: no pain cont lyrica just PM as at home encouraged pt to take 81 mg asa daily skip metformin and stop ibuprofen till renal function checked in am Time Spent With Patient Time: Total time spent is greater than 50% in coordination of care (as documented) at patient's floor/unit and/or counseling patient: QUALITY VTE Is this test being ordered to rule out VTE?: No Deep Vein Thrombosis/Pulmonary Embolism Present on Admission: No
--- NOTE | 2021-06-19 14:19 | Internal Med Progress Note ---
SUBJECTIVE Subjective Patient information: Note initiated : 06/19/21 at 2:11 pm Service Date, if different from initiated Date: [] Patient: Grace Sands 66 y/o F admitted on 06/13/21 for infected wound. Chief Complaint: [] Principal diagnosis: dFU Interval history: History of present illness: Ms. Sands is a 66 year old F history of morbid obesity, type 2 diabetes mellitus, asthma, essential hypertension's, presenting with 2-day history of right foot ulcer at her also. Prior similar episode was about a month ago on her right fifth toe. She does not remember any trauma or injury to the site. 2 days ago she had a low-grade fever temperature 98 according to patient's. She also had diarrhea 3 days ago. Yesterday she woke up discovering a blister measuring 5 x 7 to 10 cm in the sole of her right foot. She denies any pain because she cannot feel any pain secondary to diabetic neuropathy. She currently does not have any subjective or objective fever or any shaking chills. No change in her appetite. She presented to her PCP clinics earlier today for a wound debridement but she was sent by the PCP to our ED for further evaluations. Vital signs are within normal limits upon ER presentations. Labs significant for leukocytosis with WBC 12.1. Serum glucose level 376. No imaging available. 06/19 pt getting dressing change and I came to evaluate wound. Pt says cant feel her foot so no pain nurses report she refused asa today. not compliant with diabetic diet but doesnt eat sugar. seen with Vicente from wound care. Looks like the unusual pattern on plantar surface of foot is granulation tissue. Pt agrees to stay until there is more coverage and toughness to dermis to allow her to go home on her own. Wants to drive and walk. Pt agrees to increase insulin. has been refusing asa and lovenox. 06/20 Constitutional Vitals: Vital Signs Temp Pulse Resp BP Pulse Ox 97.6 F 57 L 20 148/66 95 06/19/21 12:00 06/19/21 12:00 06/19/21 12:00 06/19/21 12:00 06/19/21 12:00 Period Temp Pulse Resp BP Sys/Torres Pulse Ox Last 24 Hr 96.5 F-97.7 F 54-62 20-20 121-161/63-69 93-97 Intake and Output 11/03/21 11/03/21 11/03/21 05:59 13:59 21:59 Intake Total 300 1160 Balance 300 1160 Intake & Output: Intake & Output 06/19/21 06/19/21 06/19/21 05:59 13:59 21:59 Intake Total 300 1160 Balance 300 1160 Intake: Oral 300 1160 Other: Meal Breakfast Percent of Meal Consumed 100% Stool Size Large # Voids 1 1 # Bowel Movements 1 Exam: General: Alert, Awake, No acute Distress, obese Eyes/N/T: EOMI, Head/Neck: neck supple, CV: RRR, No murmurs, Pulm: Clear b/l, no wheezing/rhonchi/rales Abd: soft, nontender, +BS x4 Ext: no clubbing/cyanosis, b/l LE edema Neuro: Alert, no focal deficits, moves all extremities, Skin: warm/dry OBJ DATA Labs CBC & Chem 7: 06/17/21 06:09 06/19/21 05:52 Labs: Abnormal Lab Results 06/17/21 06/17/21 06:09 06:09 MPV 11.3 H Glucose 188 H Meds: Medications Acetaminophen (Acetaminophen 325 Mg Tablet) 650 mg PO Q6HP PRN; Protocol PRN Reason: Per Pain Protocol/Fever > 101 Acyclovir (Acyclovir 15 Gm Topoint) 1 gm TP 5XD PRN PRN Reason: Shingles Albuterol/Ipratropium (Ipratropium/Albuterol 3 Ml Ampul.Neb) 3 ml NEB Q4HP PRN PRN Reason: Shortness Of Breath Ascorbic Acid (Ascorbic Acid 500 Mg Tablet) 500 mg PO DAILY [facility] Last Admin: 06/19/21 08:38 Dose: 500 mg Documented by: Aspirin (Aspirin 81 Mg Tab.Chew) 81 mg PO DAILY [facility] Last Admin: 06/19/21 08:37 Dose: 81 mg Documented by: Cefazolin Sodium (Cefazolin 1 Gm Vial) 1 gm IV Q8H [facility]; Protocol Last Admin: 06/19/21 05:33 Dose: 1 gm Documented by: Dextrose (Dextrose 50% 50 Ml Vial) 0 ml IV UD PRN PRN Reason: Hypoglycemia Diagnostic Test (Pha) (Accu-Chek 1 Each Strip) 1 each FS ACHS [facility] Last Admin: 06/19/21 12:36 Dose: 1 each Documented by: Docusate Sodium (Docusate Sodium 100 Mg Capsule) 100 mg PO BID [facility] Last Admin: 06/19/21 08:19 Dose: Not Given Documented by: Enoxaparin Sodium (Enoxaparin 40 Mg/0.4 Ml Syringe) 40 mg SQ DAILY [facility] Last Admin: 06/19/21 08:38 Dose: 40 mg Documented by: Fluticasone Propionate (Fluticasone Propionate [place].Yehuda) 1 spray NS BID [facility] Last Admin: 06/19/21 08:38 Dose: Not Given Documented by: Furosemide (Furosemide 40 Mg Tablet) 40 mg PO DAILY [facility] Last Admin: 06/19/21 08:37 Dose: 40 mg Documented by: Glucose (Dextrose 31 Gm Oral.Susp) 15 gm PO PRN PRN PRN Reason: Hypoglycemia Guaifenesin (Guaifenesin 600 Mg Tab.Sr.12h) 600 mg PO BIDP PRN PRN Reason: Congestion Hydroxychloroquine Sulfate (Hydroxychloroquine 200 Mg Tablet) 200 mg PO Th@0900 [facility] Insulin Glargine (Insulin Glargine, Human 1 Unit/0.01 Ml) 8 unit SQ BID [facility] Last Admin: 06/19/21 08:38 Dose: 8 units Documented by: Insulin Human Lispro (Insulin Lispro 1 Unit/0.01 Ml Unit) 0 unit SQ [facility]; Protocol Last Admin: 06/19/21 12:36 Dose: Not Given Documented by: Losartan Potassium (Losartan 25 Mg Tablet) 25 mg PO DAILY [facility] Last Admin: 06/19/21 08:37 Dose: 25 mg Documented by: Montelukast Sodium (Montelukast 10 Mg Tablet) 10 mg PO [facility] Last Admin: 06/18/21 21:16 Dose: Not Given Documented by: Ondansetron HCl (Ondansetron 4 Mg/2 Ml Vial) 4 mg IV Q6HP PRN PRN Reason: Nausea And Vomiting Oxycodone HCl (Oxycodone Hcl 5 Mg Tablet) 5 mg PO Q4HP PRN; Protocol PRN Reason: Per Pain Protocol Potassium Chloride (Potassium Ch[facility] 20 Meq Tablet) [facility] Admin: 06/19/21 08:37 Dose: 20 meq Documented by: Pregabalin (Pregabalin 75 Mg Capsule) 75 mg PO [facility] Last Admin: 06/18/21 21:15 Dose: 75 mg Documented by: Senna (Sennosides 1 Tablet) 2 tab PO [facility] Last Admin: 06/18/21 21:16 Dose: Not Given Documented by: Simvastatin (Simvastatin 40 Mg Tablet) 40 mg PO HS [facility] Last Admin: 06/18/21 21:16 Dose: Not Given Documented by: Sodium Chloride (0.9 % Sodium Chloride 10 Ml Syringe) 10 ml IV Q8 [facility] Last Admin: 06/19/21 05:33 Dose: 10 ml Documented by: Spironolactone (Spironolactone 25 Mg Tablet) 25 mg PO DAILY [facility] Last Admin: 06/19/21 08:37 Dose: 25 mg Documented by: Vitamin D (Vitamin D3 5,000 Unit Capsule) 5,000 unit PO DAILY [facility] Last Admin: 06/19/21 08:37 Dose: 5,000 unit Documented by: Zolpidem Tartrate (Zolpidem 5 Mg Tablet) 5 mg PO HSP PRN PRN Reason: Insomnia A/P Narrative A/P Narrative: Assessment: *Diabetic foot ulcer/infection Right foot, w/associated diabetic neuropathy: -[facility] MSSA (per fax from lab, not yet in computer) *Type 2 diabetes mellitus w/neuropathy: *Essential hypertension: *Asthma: *Morbid obesity: Plan: * cefazolin then PO Keflex upon d/c * podiatry following /wound care * Continue with pain control with oxycodone and morphine * Continue with twice daily Lantus, SSI * cont ARB, cont asa/statin * Continue fluticasone for history of asthma * lyrica at night * Likely another 2-3 days of IV antibiotics, then consideration for transition to orals if continuing to improve Time Spent With Patient Time: Total time spent is greater than 50% in coordination of care (as documented) at patient's floor/unit and/or counseling patient: QUALITY VTE Is this test being ordered to rule out VTE?: No Deep Vein Thrombosis/Pulmonary Embolism Present on Admission: No
--- NOTE | 2021-06-19 15:01 | Discharge Summary ---
Discharge Provider Provider Patient information: Note initiated : 06/19/21 at 3:00 pm Service Date, if different from initiated Date: [] Patient: Grace Sands 66 y/o F admitted on 06/13/21 for infected wound. Chief Complaint: [] Date of admission: 06/13/21 18:00 Discharge date: 06/20/21 Primary care physician: Bipin Yung Consults: 06/13/21 Consult to Physician [CONS] Stat Comment: Consulting Provider: Calin Garza Reason For Exam: Physician to Consult Consult to Physician [CONS] Stat Comment: Consulting Provider: Marc Pickens Reason For Exam: Physician to Consult Discharge Meds Discharge Medications Home Medications furosemide 20 mg PO DAILY 09/15/17 [History Confirmed 06/14/21 Last Taken 06/13/21] losartan [Cozaar] 25 mg PO DAILY 09/15/17 [History Confirmed 06/14/21 Last Taken 06/13/21] B [place] 1 tab PO DAILY 11/21/19 [History Confirmed 06/14/21 Last Taken 06/13/21] DHEA 5 mg 5 mg PO BID 11/21/19 [History Confirmed 06/14/21 Last Taken 06/13/21] Gamma E 5mg 400 mg PO DAILY 11/21/19 [History Confirmed 06/14/21 Last Taken 06/13/21] [place] ProDHA 1000 2,000 mg PO DAILY 11/21/19 [History Confirmed 06/15/21 Last Taken 06/13/21] [place] ProEPA 2000MG 1,000 mg PO DAILY 11/21/19 [History Confirmed 06/14/21 Last Taken 06/13/21] Q-Evail 200 mg 200 mg PO DAILY 11/21/19 [History Confirmed 06/14/21 Last Taken 06/13/21] Quercitin and Nettle 600mg 1 tab TID 11/21/19 [History Confirmed 06/15/21 Last Taken 06/13/21] Tumeric 800mg 800 mg PO TID 11/21/19 [History Confirmed 06/14/21 Last Taken 06/13/21] Zinc Plus 15mg 15 mg PO DAILY 11/21/19 [History Confirmed 06/14/21 Last Taken 06/13/21] ascorbate calcium (vitamin C) 500 mg tablet 500 mg .ROUTE TID 11/21/19 [History Confirmed 06/14/21 Last Taken 06/13/21] cholecalciferol (vitamin D3) 125 mcg (5,000 unit) capsule 125 mcg .ROUTE TID 02/03 [History Confirmed 06/14/21 Last Taken 06/13/21] cinnamon bark 500 mg capsule 500 mg .ROUTE BID 11/21/19 [History Confirmed 06/14/21 Last Taken 06/13/21] cyclosporine 0.05 % eye drops in a dropperette 1 drp PRN PRN 11/21/19 [History Confirmed 06/15/21 Last Taken 02/14/21] ibuprofen 100 mg tablet 800 mg .ROUTE PRN PRN 11/21/19 [History Confirmed 06/14/21 Last Taken 06/13/21] liquid B12 500mg 500 mcg PO BID 11/21/19 [History Confirmed 06/14/21 Last Taken 06/13/21] pregabalin 75 mg capsule 75 mg .ROUTE HS cap 11/21/19 [History Confirmed 06/15/21 Last Taken 06/13/21] [place] U-100 Insulin 8 unit BID 06/13/21 [History Confirmed 06/15/21 Last Taken 06/14/21 8 units] acyclovir 1 applic TOPICAL 5XD PRN 06/13/21 [History Confirmed 06/14/21 Last Taken 03/16/21] clotrimazole-betamethasone 15 applic TOPICAL BID PRN 06/13/21 [History Confirmed 06/14/21 Last Taken 03/16/21] hydroxychloroquine 200 mg PO WEEKLY 06/13/21 [History Confirmed 06/14/21 Last Taken 06/13/21] potassium chloride [Klor-Con M20] 20 meq PO DAILY 06/13/21 [History Confirmed 06/14/21 Last Taken 06/13/21] Calcium + D 500 mg BID 06/14/21 [History Confirmed 06/14/21 Last Taken 06/13/21] J-Ctbmmt-S-Cysteine 600 mg DAILY 06/14/21 [History Confirmed 06/14/21 Last Taken 06/13/21] Sinex Ultra Fine Mist Regular 1 spray PRN PRN 06/14/21 [History Confirmed 06/15/21 Last Taken Unknown] magnesium glycinate 120 mg TID 06/14/21 [History Confirmed 06/14/21 Last Taken 06/13/21] methocarbamol 750 mg PRN PRN 06/14/21 [History Confirmed 06/14/21 Last Taken Unknown] olive leaf extract 1 tab PO BID 06/14/21 [History Confirmed 06/15/21 Last Taken 06/13/21] cephalexin 500 mg PO QID #8 cap 06/19/21 [Rx Last Taken Unknown] metformin 1,000 mg PO QAMAC 06/19/21 [History Confirmed 06/19/21 Last Taken 06/13/21] metformin 500 mg PO QHS 06/19/21 [History Confirmed 06/19/21 Last Taken 06/13/21] metformin 500 mg PO QPMAC 06/19/21 [History Confirmed 06/19/21 Last Taken 06/13/21] spironolactone 25 mg PO DAILY #30 tab 06/19/21 [Rx Last Taken Unknown] COURSE Hospital Course Hospital course: Interval history: History of present illness: Ms. Sands is a 66 year old F history of morbid obesity, type 2 diabetes mellitus, asthma, essential hypertension's, presenting with 2-day history of right foot ulcer at her also. Prior similar episode was about a month ago on her right fifth toe. She does not remember any trauma or injury to the site. 2 days ago she had a low-grade fever temperature 98 according to patient's. She also had diarrhea 3 days ago. Yesterday she woke up discovering a blister measuring 5 x 7 to 10 cm in the sole of her right foot. She denies any pain because she cannot feel any pain secondary to diabetic neuropathy. She currently does not have any subjective or objective fever or any shaking chills. No change in her appetite. She presented to her PCP clinics earlier today for a wound debridement but she was sent by the PCP to our ED for further evaluations. Vital signs are within normal limits upon ER presentations. Labs significant for leukocytosis with WBC 12.1. Serum glucose level 376. No imaging available. 06/19 pt getting dressing change and I came to evaluate wound. Pt says cant feel her foot so no pain nurses report she refused asa today. not compliant with diabetic diet but doesnt eat sugar. seen with Vicente from wound care. Looks like the unusual pattern on plantar surface of foot is granulation tissue. Pt agrees to stay until there is more coverage and toughness to dermis to allow her to go home on her own. Wants to drive and walk. Pt agrees to increase insulin. has been refusing asa and lovenox. 06/20 Blood glucose high because patient refusing sliding scale insulin. No overnight event or new complaints. A/P Narrative: Assessment: *Diabetic foot ulcer/infection Right foot, w/associated diabetic neuropathy: -[facility] MSSA (per fax from lab, not yet in computer) *Type 2 diabetes mellitus w/neuropathy: *Essential hypertension: *Asthma: *Morbid obesity: Plan: cefazolin then PO Keflex upon d/c podiatry following /wound care Discharge diagnosis: Diabetic foot ulcer infection of the right Secondary discharge diagnosis: Diabetes hypertension morbid obesity asthma neuropathy Time Spent with Patient Time attestation: Total time spent providing and/or coordinating discharge services: Time spent: Greater than 30 minutes EXAM Constitutional Vitals: Temp Pulse Resp BP Pulse Ox 97.6 F 57 L 20 148/66 95 06/19/21 12:00 06/19/21 12:00 06/19/21 12:00 06/19/21 12:00 06/19/21 12:00 Discharge Data Data Completed and Pending Labs on day of discharge: Labs from last 24 hours 06/19/21 06/19/21 05:52 05:51 Sodium Pending Potassium Pending Chloride Pending Carbon Dioxide Pending Anion Gap Pending BUN Pending Creatinine Pending GFR Calculation Pending Glucose Pending Calcium Pending C-Reactive Protein Pending Procalcitonin 0.09 Discharge Plan Patient/Caregiver Discharge Instructions Activity: increase activity as tolerated Diet: Consistent Carbohydrate Prescriptions: New spironolactone 25 mg Tablet 25 mg PO DAILY Qty: 30 RF: 0 cephalexin 500 mg capsule 500 mg PO QID Qty: 8 RF: 0 Continued losartan [Cozaar] 50 MG tablet 25 mg PO DAILY RF: 0 furosemide 40 MG tablet 20 mg PO DAILY RF: 0 potassium chloride [Klor-Con M20] 20 mEq tablet,ER particles/crystals 20 meq PO DAILY RF: 0 clotrimazole-betamethasone 1-0.05 % Cream 15 applic TOPICAL BID PRN (Reason: athletes foot) RF: 0 hydroxychloroquine 200 mg Tablet 200 mg PO WEEKLY RF: 0 acyclovir 5 % Cream 1 applic TOPICAL 5XD PRN (Reason: Shingles) RF: 0 Basaglar KwikPen U-100 Insulin 100 unit/mL (3 mL) insulin pen 8 unit BID RF: 0 Calcium + D 500 mg BID RF: 0 U-Abpyny-B-Cysteine 600 mg DAILY RF: 0 Sinex Ultra Fine Mist Regular 1 spray PRN PRN (Reason: Dry Nasal Passages) RF: 0 magnesium glycinate 120 mg TID RF: 0 methocarbamol 750 mg PRN PRN (Reason: Pain) RF: 0 olive leaf extract 1 tab PO BID RF: 0 pregabalin [Lyrica] 75 mg capsule 75 mg .Route HS RF: 0 Restasis 0.05 % dropperette 1 drp PRN PRN (Reason: Dry Eyes) RF: 0 ibuprofen 100 mg tablet 800 mg .Route PRN PRN (Reason: Pain) RF: 0 ascorbate calcium (vitamin C) 500 mg tablet 500 mg .Route TID RF: 0 cinnamon bark [Cinnamon] 500 mg capsule 500 mg .Route BID RF: 0 Q-Evail 200 mg tablet 200 mg PO DAILY RF: 0 Quercitin and Nettle 600mg tablet 1 tab TID RF: 0 B [place] 1 tab PO DAILY RF: 0 Tumeric 800mg 800 mg PO TID RF: 0 Zinc Plus 15mg 15 mg PO DAILY RF: 0 [place] ProDHA 1000 2,000 mg PO DAILY RF: 0 Gamma E 5mg 400 mg PO DAILY RF: 0 cholecalciferol (vitamin D3) 125 mcg (5,000 unit) capsule 125 mcg .Route TID RF: 0 liquid B12 500mg 500 mcg PO BID RF: 0 [place] ProEPA 2000MG 1,000 mg PO DAILY RF: 0 DHEA 5 mg 5 mg PO BID RF: 0 Discontinued hydrochlorothiazide 25 mg tablet 25 mg PO DAILY RF: 0 No Action metformin 500 mg Tablet Extended Release 24 Hr 1,000 mg PO QAMAC RF: 0 metformin 500 mg Tablet Extended Release 24 Hr 500 mg PO QPMAC RF: 0 metformin 500 mg Tablet Extended Release 24 Hr 500 mg PO QHS RF: 0 Follow Up Plan Follow up with: Bipin Yung [Primary Care Provider] - Calin Garza DPM [Physician] - Patient Disposition: Home, Self-Care Prognosis: Fair Overall status at discharge: patient is progressing back to baseline Discharge Orders: Discharge Order (Routine); Ordered 06/20/21 Ordered By: Anthony Marlow [facility] VTE Deep Vein Thrombosis/Pulmonary Embolism Present on Admission: No
[2021-06-19 16:16] LABS: Blood Urea Nitrogen 20 mg/dL (8-23); Calcium 9.3 mg/dL (8.6-10.4); Carbon Dioxide 20 mmol/L (22-30); Chloride 103 mmol/L (96-108); Glomerular Filtration Rate 96; Glucose 190 mg/dL (70-105)
[2021-06-19] MEDS: PREGABALIN 75 MG CAPSULE PO SCH (20:43)
[2021-06-19] MEDS: SIMVASTATIN 40 MG TABLET PO SCH (20:52)
[2021-06-19] MEDS: SENNOSIDES 1 TABLET PO SCH (20:52)
[2021-06-19] MEDS: MONTELUKAST 10 MG TABLET PO SCH (20:52)
[2021-06-20] MEDS: ceFAZolin 1 GM VIAL IV SCH (06:09)
[2021-06-20] MEDS: 0.9 % SODIUM CHLORIDE 10 ML SYRINGE IV SCH (06:10)
--- NOTE | 2021-06-20 07:10 | Internal Med Progress Note ---
SUBJECTIVE Subjective Patient information: Note initiated : 06/20/21 at 7:07 am Service Date, if different from initiated Date: [] Patient: Grace Sands 66 y/o F admitted on 06/13/21 for infected wound. Chief Complaint: [] Principal diagnosis: dFU Interval history: History of present illness: Ms. Sands is a 66 year old F history of morbid obesity, type 2 diabetes mellitus, asthma, essential hypertension's, presenting with 2-day history of right foot ulcer at her also. Prior similar episode was about a month ago on her right fifth toe. She does not remember any trauma or injury to the site. 2 days ago she had a low-grade fever temperature 98 according to patient's. She also had diarrhea 3 days ago. Yesterday she woke up discovering a blister measuring 5 x 7 to 10 cm in the sole of her right foot. She denies any pain because she cannot feel any pain secondary to diabetic neuropathy. She currently does not have any subjective or objective fever or any shaking chills. No change in her appetite. She presented to her PCP clinics earlier today for a wound debridement but she was sent by the PCP to our ED for further evaluations. Vital signs are within normal limits upon ER presentations. Labs significant for leukocytosis with WBC 12.1. Serum glucose level 376. No imaging available. 06/19 pt getting dressing change and I came to evaluate wound. Pt says cant feel her foot so no pain nurses report she refused asa today. not compliant with diabetic diet but doesnt eat sugar. seen with Vicente from wound care. Looks like the unusual pattern on plantar surface of foot is granulation tissue. Pt agrees to stay until there is more coverage and toughness to dermis to allow her to go home on her own. Wants to drive and walk. Pt agrees to increase insulin. has been refusing asa and lovenox. 06/20 Blood glucose high because patient refusing sliding scale insulin. No overnight event or new complaints. Likely discharge. Review of Systems: denies headache/fever/chills/nausea/vomiting/chest or abdominal pain/cough/dyspnea/diarrhea. Otherwise see above. Constitutional Vitals: Vital Signs Temp Pulse Resp BP Pulse Ox 97.2 F 53 L 16 104/56 96 06/20/21 04:35 06/20/21 04:35 06/20/21 04:35 06/20/21 04:35 06/20/21 04:35 Period Temp Pulse Resp BP Sys/Torres Pulse Ox Last 24 Hr 97.2 F-98.5 F 53-63 14-20 104-155/54-75 94-99 Intake and Output 06/19/21 06/20/21 06/20/21 21:59 05:59 13:59 Intake Total 720 0 Balance 720 0 Weight 117.254 kg Intake & Output: Intake & Output 06/19/21 06/20/21 06/20/21 21:59 05:59 13:59 Intake Total 720 0 Balance 720 0 Weight 117.254 kg Intake: Oral 720 0 Other: Meal Dinner Percent of Meal Consumed 100% Feeding Ability Independent # Voids 1 1 Exam: General: Alert, Awake, No acute Distress, obese Eyes/N/T: EOMI, Head/Neck: neck supple, CV: RRR, No murmurs, Pulm: Clear b/l, no wheezing/rhonchi/rales Abd: soft, nontender, +BS x4 Ext: no clubbing/cyanosis, b/l LE edema, right food in dressings. Neuro: Alert, no focal deficits, moves all extremities, Skin: warm/dry OBJ DATA Labs CBC & Chem 7: 06/17/21 06:09 06/19/21 05:52 Labs: Abnormal Lab Results 06/19/21 06/17/21 06/17/21 05:52 06:09 06:09 MPV 11.3 H Carbon Dioxide 20 L Glucose 190 H 188 H C-Reactive Protein 1.30 H Meds: Medications Acetaminophen (Acetaminophen 325 Mg Tablet) 650 mg PO Q6HP PRN; Protocol PRN Reason: Per Pain Protocol/Fever > 101 Acyclovir (Acyclovir 15 Gm Topoint) 1 gm TP 5XD PRN PRN Reason: Shingles Albuterol/Ipratropium (Ipratropium/Albuterol 3 Ml Ampul.Neb) 3 ml NEB Q4HP PRN PRN Reason: Shortness Of Breath Ascorbic Acid (Ascorbic Acid 500 Mg Tablet) 500 mg PO DAILY [facility] Last Admin: 06/19/21 08:38 Dose: 500 mg Documented by: Aspirin (Aspirin 81 Mg Tab.Chew) 81 mg PO DAILY [facility] Last Admin: 06/19/21 08:37 Dose: 81 mg Documented by: Cefazolin Sodium (Cefazolin 1 Gm Vial) 1 gm IV Q8H [facility]; Protocol Last Admin: 06/20/21 06:09 Dose: 1 gm Documented by: Dextrose (Dextrose 50% 50 Ml Vial) 0 ml IV UD PRN PRN Reason: Hypoglycemia Diagnostic Test (Pha) (Accu-Chek 1 Each Strip) 1 each FS [facility] Last Admin: 06/19/21 20:42 Dose: 1 each Documented by: Docusate Sodium (Docusate Sodium 100 Mg Capsule) 100 mg PO BID [facility] Last Admin: 06/19/21 20:51 Dose: Not Given Documented by: Enoxaparin Sodium (Enoxaparin 40 Mg/0.4 Ml Syringe) 40 mg SQ DAILY [facility] Last Admin: 06/19/21 08:38 Dose: 40 mg Documented by: Fluticasone Propionate (Fluticasone Propionate [place].Yehuda) 1 spray NS BID [facility] Last Admin: 06/19/21 20:51 Dose: Not Given Documented by: Furosemide (Furosemide 40 Mg Tablet) 40 mg PO DAILY [facility] Last Admin: 06/19/21 08:37 Dose: 40 mg Documented by: Glucose (Dextrose 31 Gm Oral.Susp) 15 gm PO PRN PRN PRN Reason: Hypoglycemia Guaifenesin (Guaifenesin 600 Mg Tab.Sr.12h) 600 mg PO BIDP PRN PRN Reason: Congestion Hydroxychloroquine Sulfate (Hydroxychloroquine 200 Mg Tablet) 200 mg PO Th@0900 [facility] Insulin Glargine (Insulin Glargine, Human 1 Unit/0.01 Ml) 8 unit SQ BID [facility] Last Admin: 06/19/21 20:42 Dose: 8 units Documented by: Insulin Human Lispro (Insulin Lispro 1 Unit/0.01 Ml Unit) 0 unit SQ [facility]; Protocol Last Admin: 06/19/21 20:42 Dose: Not Given Documented by: Losartan Potassium (Losartan 25 Mg Tablet) 25 mg PO DAILY [facility] Last Admin: 06/19/21 08:37 Dose: 25 mg Documented by: Montelukast Sodium (Montelukast 10 Mg Tablet) 10 mg PO HS [facility] Last Admin: 06/19/21 20:52 Dose: Not Given Documented by: Ondansetron HCl (Ondansetron 4 Mg/2 Ml Vial) 4 mg IV Q6HP PRN PRN Reason: Nausea And Vomiting Oxycodone HCl (Oxycodone Hcl 5 Mg Tablet) 5 mg PO Q4HP PRN; Protocol PRN Reason: Per Pain Protocol Potassium Chloride (Potassium Chloride 20 Meq Tablet) 20 meq PO QAMCC [facility] Last Admin: 06/19/21 08:37 Dose: 20 meq Documented by: Pregabalin (Pregabalin 75 Mg Capsule) 75 mg PO [facility] Last Admin: 06/19/21 20:43 Dose: 75 mg Documented by: Senna (Sennosides 1 Tablet) 2 tab PO [facility] Last Admin: 06/19/21 20:52 Dose: Not Given Documented by: Simvastatin (Simvastatin 40 Mg Tablet) 40 mg PO [facility] Last Admin: 06/19/21 20:52 Dose: Not Given Documented by: Sodium Chloride (0.9 % Sodium Chloride 10 Ml Syringe) 10 ml IV Q8 [facility] Last Admin: 06/20/21 06:10 Dose: 10 ml Documented by: Spironolactone (Spironolactone 25 Mg Tablet) 25 mg PO DAILY [facility] Last Admin: 06/19/21 08:37 Dose: 25 mg Documented by: Vitamin D (Vitamin D3 5,000 Unit Capsule) 5,000 unit PO DAILY [facility] Last Admin: 06/19/21 08:37 Dose: 5,000 unit Documented by: Zolpidem Tartrate (Zolpidem 5 Mg Tablet) 5 mg PO HSP PRN PRN Reason: Insomnia A/P Narrative A/P Narrative: Assessment: *Diabetic foot ulcer/infection Right foot, w/associated diabetic neuropathy: -WC MSSA (per fax from lab, not yet in computer) *Type 2 diabetes mellitus w/neuropathy: *Essential hypertension: *Asthma: *Morbid obesity: Plan: * cefazolin then PO Keflex upon d/c * podiatry following /wound care * Continue with pain control with oxycodone and morphine * Continue with twice daily Lantus(increased to 12bid), SSI * cont ARB, cont asa/statin * Continue fluticasone for history of asthma * lyrica at night * ppx: lovenox Time Spent With Patient Time: Total time spent is greater than 50% in coordination of care (as documented) at patient's floor/unit and/or counseling patient: QUALITY VTE Is this test being ordered to rule out VTE?: No Deep Vein Thrombosis/Pulmonary Embolism Present on Admission: No
[2021-06-20] MEDS: INSULIN LISPRO 1 UNIT/0.01 ML UNIT SQ SCH ×2 (07:48→11:28)
[2021-06-20] MEDS: SPIRONOLACTONE 25 MG TABLET PO SCH (08:03)
[2021-06-20] MEDS: ASCORBIC ACID 500 MG TABLET PO SCH (08:03)
[2021-06-20] MEDS: LOSARTAN 25 MG TABLET PO SCH (08:03)
[2021-06-20] MEDS: ASPIRIN 81 MG TAB.CHEW PO SCH (08:03)
[2021-06-20] MEDS: DOCUSATE SODIUM 100 MG CAPSULE PO SCH (08:04)
[2021-06-20] MEDS: POTASSIUM CHLORIDE 20 MEQ TABLET PO SCH (08:04)
[2021-06-20] MEDS: FUROSEMIDE 40 MG TABLET PO SCH (08:06)
[2021-06-20] MEDS: FLUTICASONE PROPIONATE SPRAY.NAS NS SCH (08:06)
[2021-06-20] MEDS: ENOXAPARIN 40 MG/0.4 ML SYRINGE SQ SCH (08:07)
[2021-06-20] MEDS: VITAMIN D3 5,000 UNIT TABLET PO SCH (08:11)
[2021-06-20] MEDS ORDERED: HYDROXYCHLOROQUINE 200 MG TABLET PO SCH (09:00)
[2021-06-20] MEDS ORDERED: INSULIN GLARGINE, HUMAN 1 UNIT/0.01 ML SQ SCH (09:00)
== END 2021-06-20 12:35 | disposition home or self-care (01) | DRG 638 ==
LOC: ED 13:42 → MEDSUR 17:55
PROVIDERS: ADMIT Internal Medicine; ATTEND Internal Medicine